=== PATIENT | female | born 1985 | race Two or more races ===

== ENCOUNTER 2023-05-13 13:55 | Outpatient (REF) | payer MEDICAID, SELFPAY ==
--- NOTE | ~2023-05-13 | XR_ITS ---
EXAMINATION: XR CHEST CLINICAL INFORMATION: Suspected hilar adenopathy. COMPARISON: Chest radiograph done on 11/09/2017. TECHNIQUE: 2 views of the chest were obtained. FINDINGS: No significant abnormality is noted involving the heart, lungs, mediastinum, bony thorax or soft tissues. XR/XR chest 2V IMPRESSION: No radiographic evidence of bilateral hilar adenopathy.
== END 2023-05-13 13:56 | disposition home or self-care (01) ==
LOC: HO.LAB 13:55
PROVIDERS: PCP Internal Medicine; Visit Provider Internal Medicine
DX: Z00.00 Encounter for general adult medical examination without abnormal findings (principal); F32.A Depression, unspecified; R59.0 Localized enlarged lymph nodes
CPT/HCPCS: 36415; 71046; 80053; 80061; 84443; 85025

== ENCOUNTER 2023-08-27 19:29 | Emergency (ER) | payer MEDICAID, SELFPAY ==
--- NOTE | ~2023-08-27 | XR_ITS ---
EXAMINATION: XR CHEST CLINICAL INFORMATION: Chest pain. COMPARISON: Chest radiograph 05/13/2023. TECHNIQUE: 2 views of the chest were obtained. FINDINGS: No significant abnormality is noted involving the heart, lungs, mediastinum, bony thorax or soft tissues. XR/XR chest 2V IMPRESSION: Unremarkable examination.
[2023-08-27 19:31] VITALS: BP 131/78; PULSE 109; RESP 16; TEMP 36.9; O2SAT 97; BMI 23.6
--- NOTE | 2023-08-27 19:33 | ED.CHESTPAIN ---
HPI - Chest Pain General Chief Complaint: Chest Pain Stated Complaint: chest pain Time Seen by Provider: 08/27/23 21:27 Source: patient Mode of arrival: ambulatory Limitations: no limitations History of Present Illness HPI narrative: Patient was healthy been feeling weak with occasional cough for last 2 days has body aches shortness of breath patient never been vaccinated against COVID had COVID once no other family members sick Related Data Previous Rx's Medication Instructions Recorded benzonatate 200 mg capsule 200 mg PO TID PRN cough #20 caps 08/27/23 ibuprofen 600 mg tablet 600 mg PO Q6H PRN fever or pain 08/27/23 #30 tabs Allergies Allergy/AdvReac Type Severity Reaction Status Date / Time latex [Latex] Allergy Mild RASH Verified 08/27/23 19:31 peanut [Peanut] Allergy Mild RASH Verified 08/27/23 19:31 Latex Gloves Allergy Unknown rash Uncoded 08/27/23 19:31 Review of Systems Review of Systems: Yes all other systems are reviewed and are negative PMFSH Past Medical History Surgical History History of drainage of abscess Family History Family History Father Hypertension Stroke Mother No problems noted. Maternal Aunt Breast cancer Social History Social History Housing: Apartment Alcohol intake: current Alcohol intake frequency: holidays/special occasions only Alcohol type: beer and wine Patient Tobacco Use Status: Never used Tobacco Smoked in Last 30 Days: No e-Cigarette/Vaping Use: Never Used Second Hand Smoke Exposure: No Use of substances other than those prescribed or required for medical reasons: No Advance Directives: No Patient : No service: No Current occupational status: unemployed Cognitive needs: No Hearing needs: No Vision needs: No Physical Exam Vital Signs: Vital Signs: Last Vital Signs Temp 98.5 F 08/27/23 21:41 Pulse 85 08/27/23 21:41 Resp 14 08/27/23 21:41 BP 121/87 08/27/23 21:41 Pulse Ox 100 08/27/23 21:41 O2 Del Method Room Air 08/27/23 21:41 BMI result Body Mass Index 23.6 Appearance: Alert. Oriented X3. No acute distress. Eyes: PERRLA, No Nystagmus ENT: Pharynx normal. Oral Mucosa moist Neck: Normal inspection. Neck supple. CVS: Normal heart rate and rhythm. Pulses normal. Respiratory: No respiratory distress. Equal air entry bilateral, no wheezing/rales/rhonchi Abdomen: Soft and nontender. Bowel sounds are present, Skin: Skin warm and dry. Normal skin color. Normal skin turgor. Extremities: No lower extremity edema. No calf tenderness Neuro: Oriented X 3. Course Course Course Narrative: RME performed by Deya De La Garza PA-C. Patient is a 37 year old assigned female at presenting to the emergency department with chest pain. Labs, imaging, and swabs ordered. Patient placed back in the waiting room pending room availability and results. Medications Administered Discontinued Medications Generic Name Dose Route Start Last Admin Trade Name Freq PRN Reason Stop Dose Admin Ibuprofen 600 mg 08/27/23 21:37 08/27/23 21:45 Ibuprofen 600 Mg Tablet PO 08/27/23 21:38 600 mg ONCE ONE Administration Medical Decision Making Medical Decision Making [facility] Narrative: Patient COVID positive likely the cause for the body symptoms will discharge patient home on symptomatic treatment Differential Diagnosis Differential Diagnoses: The differential diagnosis associated with the presentation includes Viral infection/COVID/URI Lab Data [facility] Lab Attestation statement: I reviewed the patient's lab results. 08/27/23 19:56 08/27/23 19:56 Labs: Lab Results 08/27/23 Range/Units 19:56 WBC 4.6 L (4.8-10.8) X10*3/uL RBC 4.43 (4.20-5.50) X10*6/uL Hgb 12.9 (12.0-16.0) g/dl Hct 38.5 (37.0-47.0) % MCV 86.9 (80.0-98.0) fL MCH 29.1 (27.0-33.0) pg MCHC 33.5 (31.0-35.0) g/dl RDW 11.9 (11.0-16.0) % Plt Count 223 (160-400) X10*3/uL MPV 9.4 (9.4-12.3) fL Immature Gran % (Auto) 0.4 (0.0-0.4) % Neut % (Auto) 58.5 (45-73) % Lymph % (Auto) 23.0 (20-40) % [place]dwell % (Auto) 16.6 H (2-11) % Eos % (Auto) 1.1 (0-4) % Baso % (Auto) 0.4 (0-2) % Lymph # (Auto) 1.1 L (1.2-4.9) X10*3/uL [place]dwell # (Auto) 0.8 (0.1-1.2) X10*3/uL Eos # (Auto) 0.1 (0.0-0.4) X10*3/uL Baso # (Auto) 0.0 (0.0-0.2) X10*3/uL Abs Immat Gran (auto) 0.02 (0.00-0.03) X10*3/uL Absolute Neuts (auto) 2.7 (2.0-8.3) x10*3/uL Absolute Nucleated RBC 0.000 (0.0-0.012) X10*3/uL Nucleated RBC % (auto) 0.0 (0.0-0.2) /100WBC PT 11.6 (11.1-13.3) SEC INR 1.0 (0.9-1.1) APTT 26.7 (26.0-36.4) SEC Sodium 139 (135-145) mmol/L Potassium 3.6 (3.3-5.1) mmol/L Chloride 104 (96-108) mmol/L Carbon Dioxide 25 (22-29) mmol/L Anion Gap 14 (12-20) BUN 9 (9-16) mg/dL Creatinine 0.69 (0.5-1.4) mg/dL Estim Creat Clear Calc 84.2 Estimated GFR > 60 Random Glucose 96 (60-115) mg/dL Calcium 9.0 (8.4-10.2) mg/dL Magnesium 1.8 (1.6-2.6) mg/dL Total Bilirubin 0.4 (0.0-1.0) mg/dL AST 21 (5-31) U/L ALT 21 (0-31) U/L Alkaline Phosphatase 53 (39-117) U/L Troponin I High Sens < 2.7 (<3.5-17.0) ng/L Total Protein 7.1 (6.5-8.0) g/dL Albumin 4.1 (3.5-5.0) g/dL Influenza Type A (PCR) NEGATIVE (Negative) Influenza Type B (PCR) NEGATIVE (Negative) RSV RNA Qual (PCR) NEGATIVE (Negative) SARS-CoV-2 RNA (RT-PCR) POSITIVE A (Negative) Discharge Plan Discharge Clinical Impression: COVID-19 Patient Disposition: Home, Self-Care Instructions: COVID-19 (Coronavirus Disease 2019) (ED) Additional Instructions: Social distancing has advised Drink plenty of fluid Cough drops and ibuprofen as prescribed Report to ER if increased shortness of breath Prescriptions: New benzonatate 200 mg capsule 200 mg PO TID PRN (Reason: cough) Qty: 20 0RF ibuprofen 600 mg tablet 600 mg PO Q6H PRN (Reason: fever or pain) Qty: 30 0RF Stand Alone Forms: Work/School Release Interventions: ED Discharge Assessment Last Done: 08/27/23 22:03 Discharge Date/Time: 08/27/23 22:05
--- NOTE | 2023-08-27 19:34 | ECG_ITS ---
Test Reason : CHEST PAIN Blood Pressure : / mmHG Vent. Rate : 091 BPM Atrial Rate : 091 BPM P-R Int : 134 ms QRS Dur : 082 ms QT Int : 346 ms P-R-T Axes : 059 074 020 degrees QTc Int : 425 ms Normal sinus rhythm RSR' or QR pattern in V1 suggests right ventricular conduction delay Otherwise normal ECG No previous ECGs available Referred By: Deya De La Garza Electronically Signed By:VERONA ARNOLD MD
[2023-08-27 19:59] LABS: MANUAL DIFF FLAG NO
[2023-08-27 20:07] LABS: Prothrombin Time 11.6 SEC (11.1-13.3)
[2023-08-27 20:09] LABS: Partial Thromboplastin Time 26.7 SEC (26.0-36.4)
[2023-08-27 20:16] LABS: Alanine Aminotransferase 21 U/L (0-31); Albumin Level 4.1 g/dL (3.5-5.0); Alkaline Phosphatase 53 U/L (39-117); Anion Gap 14 (12-20); Aspartate Amino Transferase 21 U/L (5-31); Bilirubin Total 0.4 mg/dL (0.0-1.0); Blood Urea Nitrogen 9 mg/dL (9-16); Carbon Dioxide 25 mmol/L (22-29); Chloride 104 mmol/L (96-108); Creatinine Clr Calc Pharmacy 84.2; Estimated Glomerular Filt Rate > 60; Glucose Random 96 mg/dL (60-115); Magnesium 1.8 mg/dL (1.6-2.6); Potassium 3.6 mmol/L (3.3-5.1); Sodium 139 mmol/L (135-145); Total Protein 7.1 g/dL (6.5-8.0)
[2023-08-27 20:26] LABS: Basophils Percent Auto 0.4 % (0-2); Eosinophils Absolute Auto 0.1 X10*3/uL (0.0-0.4); Eosinophils Percent Auto 1.1 % (0-4); Hematocrit 38.5 % (37.0-47.0); Hemoglobin 12.9 g/dl (12.0-16.0); Imm Gran Abs Auto 0.02 X10*3/uL (0.00-0.03); Imm Gran Pct Auto 0.4 % (0.0-0.4); Lymphocytes Absolute Auto 1.1 X10*3/uL (1.2-4.9); Mean Corpuscular HGB Conc 33.5 g/dl (31.0-35.0); Mean Corpuscular Hemoglobin 29.1 pg (27.0-33.0); Mean Corpuscular Volume 86.9 fL (80.0-98.0); Mean Platelet Volume 9.4 fL (9.4-12.3); Monocytes Absolute Auto 0.8 X10*3/uL (0.1-1.2); Monocytes Percent Auto 16.6 % (2-11); Neutrophils Absolute Auto 2.7 x10*3/uL (2.0-8.3); Neutrophils Percent Auto 58.5 % (45-73); Platelet Count 223 X10*3/uL (160-400); Red Blood Count 4.43 X10*6/uL (4.20-5.50); Red Cell Distribution Width 11.9 % (11.0-16.0); White Blood Count 4.6 X10*3/uL (4.8-10.8)
[2023-08-27 20:27] LABS: Troponin-I High Sensitivity < 2.7 ng/L (<3.5-17.0)
[2023-08-27 20:39] LABS: Influenza A PCR NEGATIVE (Negative); Influenza B PCR NEGATIVE (Negative); Resp Syncy Virus RNA Qual PCR NEGATIVE (Negative); SARS COV2 PCR INHOUSE POSITIVE (Negative)
[2023-08-27 21:40] VITALS: PULSE 93
[2023-08-27 21:41] VITALS: BP 121/87; PULSE 85; RESP 14; TEMP 36.9; O2SAT 100
[2023-08-27] MEDS: Ibuprofen 600 MG TABLET PO (21:45)
== END 2023-08-27 22:05 | disposition home or self-care (01) ==
PROVIDERS: Physician Assistant Medical; Emergency Provider Internal Medicine; PCP Internal Medicine
DX: U07.1 COVID-19 (principal); R07.89 Other chest pain; R05.9 Cough, unspecified; Z79.899 Other long term (current) drug therapy
CPT/HCPCS: 0241U; 71046; 80053; 83735; 84484; 85025; 85610; 85730; 93005; 99283; 99285

== ENCOUNTER 2023-09-19 17:21 | Emergency (ER) | payer MEDICAID, SELFPAY ==
[2023-09-19 18:08] VITALS: BP 137/72; PULSE 105; RESP 20; TEMP 36.7; O2SAT 100; BMI 23.6
--- NOTE | 2023-09-19 18:17 | ED_ITS ---
HPI - General Adult General Chief complaint: Skin/Abscess/Foreign Body Stated complaint: ?abcess Time Seen by Provider: 09/19/23 18:45 Source: patient Mode of arrival: ambulatory Limitations: no limitations History of Present Illness HPI narrative: Patient is a 38 year old assigned female at with a history of eczema and pilondal abscess presenting to the emergency department today with a possible pilonidal abscess. Patient states that over the last few days she has had worsening pain near her tailbone and she believes that it is another pilonidal abscess. Patient denies any dizziness, lightheadedness, abdominal pain, nausea, vomiting, fever, chills, blurry vision, double vision, loss of vision, chest pain, difficulty breathing, shortness of breath, back pain, night sweats, pain with urination, increased urinary frequency, increased urinary urgency, blood in her urine or stool, syncope or a near syncopal episode, recent trauma or falls, bowel incontinence, bladder incontinence, bowel retention, bladder retention, or any other complaints at this time. Onset (ago): day(s) Location: buttocks Radiation: non-radiation Severity: mild Severity scale (1-10): 3 Quality: aching and dull Pain Consistency: constant Relieving factors: none Exacerbating factors: none Associated symptoms: denies other symptoms Treatments prior to arrival: none Related Data Previous Rx's Medication Instructions Recorded benzonatate 200 mg capsule 200 mg PO TID PRN cough #20 caps 08/27/23 ibuprofen 600 mg tablet 600 mg PO Q6H PRN fever or pain 08/27/23 #30 tabs cephalexin 500 mg capsule 500 mg PO Q6H 7 days #28 caps 09/19/23 Allergies Allergy/AdvReac Type Severity Reaction Status Date / Time latex [Latex] Allergy Mild RASH Verified 08/27/23 19:31 peanut [Peanut] Allergy Mild RASH Verified 08/27/23 19:31 Latex Gloves Allergy Unknown rash Uncoded 08/27/23 19:31 Review of Systems Constitutional: Constitutional: Reports no additional constitutional complaints, Denies chills, Denies fever(s) and Denies night sweats Eyes: Eyes: Reports no additional eye complaints, Denies blurry vision, Denies change in vision, Denies diplopia, Denies eye discharge, Denies loss of vision and Denies eye pain ENT: Denies dizziness Cardiovascular: Cardiovascular: Reports no additional cardiovascular complaints, Denies chest pain, Denies lightheadedness, Denies Loss of Consciousness and Denies dyspnea Respiratory: Respiratory: Reports no additional respiratory complaints and Denies dyspnea Gastrointestinal: Gastrointestinal: Reports no additional gastrointestinal complaints, Denies abdominal pain, Denies melena, Denies hematochezia, Denies change in bowel habits and Denies change in stool character Comments: tail bone pain / possible pilonidal abscess Genitourinary: Genitourinary: Denies hematuria, Denies urinary frequency, Denies dysuria, Denies urinary incontinence, Denies urinary hesitancy and Denies urinary urgency Musculoskeletal: Musculoskeletal: Reports no additional musculoskeletal complaints, Denies numbness and Denies tingling Neurologic: Denies dizziness, Denies loss of vision, Denies numbness and Denies tingling Psychiatric: Psychiatric: Reports no additional psychiatric complaints Endocrine: Endocrine: Reports no additional endocrine complaints Hematologic/Lymphatic: Hematologic/Lymphatic: Reports no additional hematologic/lymphatic complaints Allergic/Immunologic: Allergic/Immunologic: Reports no additional allergic/immunologic complaints [facility] Past Medical History Attestation statement: The following information was validated with the patient. Source: old records reviewed and nursing notes reviewed Medical History COVID-19 Lymphadenopathy Right upper quadrant abdominal pain Physical exam Surgical History History of drainage of abscess Family History Family History Father Hypertension Stroke Mother No problems noted. Maternal Aunt Breast cancer Social History Social History Housing: Apartment Alcohol intake: current Alcohol intake frequency: holidays/special occasions only Alcohol type: beer and wine Patient Tobacco Use Status: Never used Tobacco Smoked in Last 30 Days: No e-Cigarette/Vaping Use: Never Used Second Hand Smoke Exposure: No Use of substances other than those prescribed or required for medical reasons: No Advance Directives: No service: No Current occupational status: unemployed Cognitive needs: No Hearing needs: No Vision needs: No Physical Exam ED Vital Signs: Vital Signs - 24 hr 09/19/23 18:08 11/12/23 19:24 Temperature 98.0 F Pulse Rate 105 H 100 Respiratory Rate 20 18 Blood Pressure 137/72 131/76 Pulse Oximetry 100 98 Oxygen Delivery Method Room Air Room Air BMI result Body Mass Index 23.6 Const General: cooperative, no acute distress, alert and awake Nutritional Appearance: well nourished Orientation/consciousness: patient oriented x3 Limitations: no limitations HENMT Head: Yes normal to inspection and Yes atraumatic Ears: hearing grossly normal bilaterally and external ears normal General nose exam: Normal external nose present, no nasal discharge noted and no epistaxis Face and sinus: Yes normal facial exam, No abrasion and No laceration Mouth: Normal oral and palatal mucosa present, no drooling and no muffled voice Eyes General: appearance normal, both eyes and all related structures Periorbital: periorbital findings normal Eyelids: Yes eyelids normal Conjunctivae: conjunctivae normal Pupils: Equal, round and reactive pupils present EOM: EOMs intact bilaterally Neck Neck: Yes normal visual inspection, Yes full ROM and Yes no lymphadenopathy Chest Chest palpation & inspection: normal inspection of the chest Resp Effort & Inspection: normal respiratory effort and able to speak in complete sentences GI Other: induration around the top of the gluteal cleft but no fluctuance, erythema, or warmth Inspection: Yes normal to inspection Neuro General: patient oriented x3 and moves all extremities Cranial nerves: Yes Equal, round and reactive pupils present Cognition (Neuro): normal cognition Motor exam (neuro): 5/5 motor strength present throughout Sensory Exam: Normal double simultaneous stimulation for sensation Coordination: [id number] test normal Extrem General: Yes normal to inspection, Yes full ROM and Yes capillary refill normal Psych Appearance: grossly normal Mental Status: mental status grossly normal Affect: normal affect Attitude: cooperative Thought process: Normal thought process present Thought content: Normal thought content present Insight: Good insight present (Psych) Course Course Course Narrative: RME performed by Deya De La Garza PA-C. Patient is a 38 year old assigned female at presenting to the emergency department with a pilonidal abscess. Patient placed back in the waiting room pending room availability. Medical Decision Making Medical Decision Making MDM Narrative: Patient is a 38 year old assigned female at with a history of pilonidal cyst and eczema presenting to the emergency department today with tailbone pain. Patient's physical exam was as noted in the physical exam portion of this note. I explained my physical exam findings to the patient. I answered all questions asked by the patient. I stressed the importance of the patient taking her medication as prescribed. I stressed the importance of the patient following up with her primary care provider and a general surgeon. I stressed the importance of the patient returning to the emergency department immediately if her symptoms were to worsen or if she were to develop any dizziness, shortness of breath, difficulty breathing, chest pain, blurry vision, loss of vision, nausea, vomiting, abdominal pain, fever, chills, back pain, or any other complaints. Patient verbalized agreement and understanding with this treatment plan and discharge. Differential Diagnosis Differential Diagnoses: The differential diagnosis associated with the presentation includes Pilonidal abscess Pilonidal cyst Tailbone pain External Record Review External record reviewed: Office record (reviewed previous internal medicine visit. ) Prescription Management I considered prescription management with: Antibiotic (patient prescribed an antibiotic. ) Discharge Plan Discharge Clinical Impression: Pilonidal cyst Patient Disposition: Home, Self-Care Instructions: Pilonidal Cyst (ED) Additional Instructions: Follow up with your primary care provider and a general surgeon. Your pilonidal cyst is not erythematous, warm, or swollen, so it is not appropriate for incision and drainage at this time. Apply warm compresses to the area and take your antibiotics as prescribed. Return to the emergency department immediately if your symptoms worsen or if you develop any dizziness, shortness of breath, difficulty breathing, chest pain, blurry vision, loss of vision, nausea, vomiting, abdominal pain, fever, chills, back pain, or any other complaints. Prescriptions: New cephalexin 500 mg capsule 500 mg PO Q6H 7 Days Qty: 28 0RF No Action benzonatate 200 mg capsule 200 mg PO TID PRN (Reason: cough) Qty: 20 0RF ibuprofen 600 mg tablet 600 mg PO Q6H PRN (Reason: fever or pain) Qty: 30 0RF Referrals: [facility] [place] General Surgeons [Provider Group] (Call to establish and follow up with a general surgeon. ) Niki Castro MD [Primary Care Provider] - Stand Alone Forms: Work/School Release Interventions: ED Discharge Assessment Last Done: 09/19/23 19:25 Discharge Date/Time: 09/19/23 19:27 Print Language: [place]
[2023-09-19 19:24] VITALS: BP 131/76; PULSE 100; RESP 18; O2SAT 98
== END 2023-09-19 19:27 | disposition home or self-care (01) ==
PROVIDERS: Emergency Provider Student in an Organized Health Care Education/Training Program; PCP Internal Medicine
DX: L05.91 Pilonidal cyst without abscess (principal); L30.9 Dermatitis, unspecified
CPT/HCPCS: 99283; 99284

== ENCOUNTER 2023-09-23 07:34 | Observation (INO) | payer MEDICAID, SELFPAY ==
--- NOTE | ~2023-09-23 | CT_ITS ---
EXAMINATION: CT PELVIS WITH CONTRAST CLINICAL INFORMATION: Buttock erythema COMPARISON: None TECHNIQUE: Helical scanning was performed with submillimeter collimation through the pelvis with the use of oral contrast and during bolus intravenous injection of 100 mL of Omnipaque 350 intravenous contrast. Sagittal and coronal multiplanar 2-D reconstructions were obtained. This CT examination was performed using dose optimization techniques as appropriate, variously including the following: *Automated exposure control *Adjustment of mA and/or kV according to patient size (this includes techniques or standardized protocols for targeted exams where dose is matched to indication/reason for exam; i.e. extremities or head) *Use of iterative reconstruction technique DLP: 130 mGy-cm FINDINGS: This study is abnormal. There is induration within the soft tissues of the left buttock extending to the gluteal crease which has the appearance of at least cellulitis or a phlegmon. Simple fluid to suggest a drainable collection is not seen. The infiltrative phlegmonous process does extend towards the left levator ani musculature and anorectal region. The uterus appears normal. There does appear to be some soft tissue and gas density in the region of the vagina. Please correlate with CYBER SECURITY ADMINISTRATOR exam. Again, drainable collections are not seen but I cannot exclude an inflammatory or infectious process in the region of the vulva and/or introitus. The muscular structures appear normal as do the osseous structures. There appear to be prominent cyst or follicles in both ovaries with a fat density structure in the left ovary at 19 mm possibly a dermoid. The bladder is decompressed. CT/CT pelvis w IV con IMPRESSION: Indurated process in the left buttock cheek extending into the left gluteal crease and levator ani musculature. An infectious process related due to the introitus or vulva may well be present as well.
[2023-09-23 07:43] VITALS: BP 123/73; PULSE 77; RESP 16; TEMP 36.3; O2SAT 100; BMI 22.9
--- NOTE | 2023-09-23 07:58 | ED.GENADULT ---
HPI - General Adult General Chief complaint: General Medical Stated complaint: Cyst Not Healing Time Seen by Provider: 09/23/23 07:38 Source: patient Mode of arrival: ambulatory Limitations: no limitations History of Present Illness HPI narrative: Patient is a 38-year-old female with history of surgical removal of pilonidal abscess presenting to the emergency department with complaint of increasing pain to left buttock. Patient was seen in this ED on 09/19/23 and started on cephalexin which she reports she has been taking as prescribed. Denies fevers. Does report some nausea but denies vomiting or diarrhea. Denies any drainage from the area. States pain makes it very uncomfortable to sit or wipe after bowel movements. MD complaint: buttock pain Onset (ago): day(s) Location: buttocks and left Radiation: non-radiation Severity: severe Quality: aching Pain Consistency: constant Relieving factors: rest Exacerbating factors: movement and other (sitting, wiping) Associated symptoms: nausea/vomiting (reports nausea, denies vomiting) Treatments prior to arrival: other (antibiotics) Related Data Previous Rx's Medication Instructions Recorded doxycycline hyclate 100 mg capsule 100 mg PO DAILY #20 caps 09/25/23 metronidazole 500 mg tablet 500 mg PO BID #30 tabs 09/25/23 Allergies Allergy/AdvReac Type Severity Reaction Status Date / Time latex [Latex] Allergy Mild RASH Verified 08/27/23 19:31 peanut [Peanut] Allergy Mild RASH Verified 08/27/23 19:31 Latex Gloves Allergy Unknown rash Uncoded 08/27/23 19:31 Review of Systems Review of Systems: As per HPI. Yes all other systems are reviewed and are negative Constitutional: Constitutional: Reports as per HPI [facility] Past Medical History Medical History COVID-19 Lymphadenopathy Right upper quadrant abdominal pain Physical exam Surgical History History of drainage of abscess Family History Family History Father Hypertension Stroke Mother No problems noted. Maternal Aunt Breast cancer Social History Housing: Apartment Unable to assess alcohol history related to: Unknown Alcohol intake: current Alcohol intake frequency: holidays/special occasions only Alcohol type: beer and wine Patient Tobacco Use Status: Never used Tobacco e-Cigarette/Vaping Use: Never Used Second Hand Smoke Exposure: No service: No Current occupational status: unemployed Cognitive needs: No Hearing needs: No Vision needs: No Physical Exam ED Vital Signs: Vital Signs - 24 hr 09/23/23 07:43 09/23/23 11:14 09/23/23 15:26 Temperature 97.4 F 98.6 F Pulse Rate 77 96 100 Respiratory Rate 16 18 Blood Pressure 123/73 122/70 151/66 H Pulse Oximetry 100 99 97 Oxygen Delivery Method Room Air Room Air BMI result Body Mass Index 22.9 Vital signs have been reviewed and appear to be correct. Blood pressure normal. Heart rate normal. Respiratory rate normal. Temperature normal. Oxygen saturation normal. Const General: cooperative, healthy appearing and no acute distress Orientation/consciousness: oriented to person, oriented to place, oriented to time and patient oriented x3 Limitations: no limitations HENMT Head: Yes normocephalic and Yes atraumatic Ears: external ears normal General nose exam: Normal external nose present Face and sinus: Yes face symmetric Mouth: oropharynx normal and moist mucous membranes Throat: Yes uvula midline Eyes Pupils: Equal, round and reactive pupils present Neck Neck: Yes normal visual inspection and Yes supple Resp Effort & Inspection: normal respiratory effort and able to speak in complete sentences Auscultation: clear to auscultation bilaterally Cardio Rate: regular rate Rhythm: regular rhythm Heart sounds: S1 normal heart sound present and S2 normal heart sound present GI Other: Exam chaperoned by LETI Monae. Patient also examined with Dr. Rudd. Palpation (GI): Soft to palpation and nontender Auscultation: normoactive bowel sounds Rectal Exam - Female: External hemorrhoid(s) present and tenderness (left buttock, medial) General: Yes no CVA tenderness Back/Spine/Pelvis Back: no CVA tenderness Skin General skin exam: elasticity normal and turgor normal Full body images: 1. erythema, warmth, induration Neuro General: oriented to person, oriented to place, oriented to time, patient oriented x3, moves all extremities, no focal motor deficits and CN's II-XI intact bilaterally Cranial nerves: Yes Equal, round and reactive pupils present Cognition (Neuro): normal cognition Extrem General: Yes full ROM, Yes no pedal edema and Yes no calf tenderness Psych Mental Status: mental status grossly normal Affect: normal affect Thought process: Normal thought process present Medications Administered Discontinued Medications Generic Name Dose Route Start Last Admin Trade Name Diony PRN Reason Stop Dose Admin Acetaminophen 650 mg 09/23/23 16:02 09/25/23 06:12 Acetaminophen 325 Mg Tablet PO 650 mg Q6H PRN Administration Pain, Mild (Pain Scale 1-3) Doxycycline Monohydrate 100 mg 09/23/23 18:00 09/25/23 06:10 Doxycycline Monohydrate 100 Mg Capsule PO 100 mg Q12H DAMARI Administration Hydromorphone HCl 0.5 mg 09/23/23 16:19 09/23/23 16:27 Hydromorphone Hcl 0.5 Mg/0.5 Ml Syringe IVPUSH 0.5 mg Q4H PRN Administration Pain, Severe (Pain Scale 7-10) Protocol Piperacillin Sod/Tazobactam 50 mls @ 100 mls/hr 09/23/23 13:56 09/23/23 16:14 Sod 3.375 gm/ Sodium Chloride IV 09/23/23 14:25 Infused ONCE ONE Infusion Vancomycin HCl 1,500 mg/ 500 mls @ 333.333 mls/hr 09/23/23 13:56 09/23/23 17:46 Sodium Chloride IV 09/23/23 15:25 Infused ONCE ONE Infusion Clindamycin Phosphate 900 mg in 50 mls @ 50 mls/hr 09/23/23 13:56 09/23/23 20:14 Cleocin IV 09/23/23 14:55 Infused ONCE ONE Infusion Ceftriaxone Sodium 1 gm/ 50 mls @ 100 mls/hr 09/23/23 21:00 09/24/23 21:30 Sodium Chloride IV Infused Q24H DAMARI Infusion Iohexol 85 ml 09/23/23 11:07 09/23/23 11:08 Iohexol 350 Mg/Ml 100 Ml Infus..Btl IV 09/23/23 11:08 85 ml ONCE ONE Administration Metronidazole 500 mg 09/23/23 18:00 09/25/23 06:10 Metronidazole 500 Mg Tablet PO 500 mg Q12H DAMARI Administration Oxycodone HCl 5 mg 09/23/23 11:14 09/23/23 11:18 Oxycodone Hcl Immed Release 5 Mg Tablet PO 09/23/23 11:15 5 mg ONCE ONE Administration Oxycodone HCl 5 mg 09/23/23 16:07 09/24/23 21:27 Oxycodone Hcl Immed Release 5 Mg Tablet PO 5 mg Q6H PRN Administration Pain, Severe (Pain Scale 7-10) Sodium Chloride 3 ml 09/24/23 00:00 09/25/23 09:58 0.9 % Sodium Chloride Flush 3 Ml Syringe IVFLUSH Not Given QSHIFT [facility] Zolpidem Tartrate 5 mg 09/23/23 16:07 09/24/23 00:15 Zolpidem Tartrate 5 Mg Tablet PO 5 mg BEDTIME PRN Administration Insomnia Medical Decision Making Medical Decision Making [facility] Narrative: Patient is a 38-year-old female with history of surgical removal of pilonidal abscess presenting to the emergency department with complaint of increasing pain to left buttock. On exam patient is awake, A+Ox3, VS WNL, afebrile, normal neurological exam without focal deficits, physical exam findings as above. Given reported symptoms and physical exam findings, initial differential includes buttock abscess, perirectal abscess, cellulitis. Less likely Ruth's gangrene. Labs notable for mild leukocytosis, no anemia, no significant electrolyte abnormalities, negative . CT concerning for deep space infection of left buttock. My interpretation is in agreement with the radiologist's interpretation. Nogal text to Dr. Harris regarding CT results. IV Zosyn, Vanco, and Clindamycin ordered as well as blood cultures. Discussed admission with STEVEN Aceves who is requesting to wait until patient is evaluated by doctors are be prior to admission. Patient signed out to JOSE A Arndt pending evaluation by Dr. Cosby. Differential Diagnosis Differential Diagnoses: The differential diagnosis associated with the presentation includes As per MDM. Admission/Observation Consideration of admission/observation: Escalation of care including admission/observation considered Consult Healthcare Provider Management of the patient was discussed with: Paid Internship (Dr. Harris) Lab Data [facility] Lab Attestation statement: I reviewed the patient's lab results. As per MDM. 09/24/23 06:39 09/23/23 08:34 Labs: Lab Results 09/23/23 Range/Units 08:34 WBC 11.1 H (4.8-10.8) X10*3/uL RBC 4.42 (4.20-5.50) X10*6/uL Hgb 12.6 (12.0-16.0) g/dl Hct 37.9 (37.0-47.0) % MCV 85.7 (80.0-98.0) fL MCH 28.5 (27.0-33.0) pg MCHC 33.2 (31.0-35.0) g/dl RDW 11.9 (11.0-16.0) % Plt Count 284 D (160-400) X10*3/uL MPV 9.2 L (9.4-12.3) fL Immature Gran % (Auto) 0.3 (0.0-0.4) % Neut % (Auto) 70.0 (45-73) % Lymph % (Auto) 14.8 L (20-40) % [place] % (Auto) 8.0 (2-11) % Eos % (Auto) 6.7 H (0-4) % Baso % (Auto) 0.2 (0-2) % Lymph # (Auto) 1.6 (1.2-4.9) X10*3/uL [place] # (Auto) 0.9 (0.1-1.2) X10*3/uL Eos # (Auto) 0.7 H (0.0-0.4) X10*3/uL Baso # (Auto) 0.0 (0.0-0.2) X10*3/uL Abs Immat Gran (auto) 0.03 (0.00-0.03) X10*3/uL Absolute Neuts (auto) 7.8 (2.0-8.3) x10*3/uL Absolute Nucleated RBC 0.000 (0.0-0.012) X10*3/uL Nucleated RBC % (auto) 0.0 (0.0-0.2) /100WBC Sodium 140 (135-145) mmol/L Potassium 3.6 (3.3-5.1) mmol/L Chloride 105 (96-108) mmol/L Carbon Dioxide 27 (22-29) mmol/L Anion Gap 12 (12-20) BUN 12 (9-16) mg/dL Creatinine 0.69 (0.5-1.4) mg/dL Estim Creat Clear Calc 83.4 Estimated GFR > 60 Random Glucose 102 (60-115) mg/dL Calcium 9.4 (8.4-10.2) mg/dL Beta HCG, Quant < 2 mIU/mL Independent Interpretation I performed an independent interpretation of an: CT Scan Interpretation: CT concerning for deep space infection of left buttock Radiology Impression Discussion of test interpretation with radiology: I have reviewed the radiologist's reading. Radiologist Impression: CT/CT pelvis w IV con IMPRESSION: Indurated process in the left buttock cheek extending into the left gluteal crease and levator ani musculature. An infectious process related due to the introitus or vulva may well be present as well. External Record Review External record reviewed: Inpatient record, Office record and Outpatient record Prescription Management I considered prescription management with: Antibiotic Discharge Plan Discharge Clinical Impression: Perirectal abscess Patient Disposition: Admitted as Observation Interventions: Admission Worksheet (ED) Last Done: 09/23/23 23:31
--- NOTE | 2023-09-23 08:37 | PC.NURSE ---
IV placed, labs drawn and sent.
[2023-09-23 08:39] LABS: Basophils Percent Auto 0.2 % (0-2); Eosinophils Absolute Auto 0.7 X10*3/uL (0.0-0.4); Eosinophils Percent Auto 6.7 % (0-4); Hematocrit 37.9 % (37.0-47.0); Hemoglobin 12.6 g/dl (12.0-16.0); Imm Gran Abs Auto 0.03 X10*3/uL (0.00-0.03); Imm Gran Pct Auto 0.3 % (0.0-0.4); Lymphocytes Absolute Auto 1.6 X10*3/uL (1.2-4.9); Lymphocytes Percent Auto 14.8 % (20-40); MANUAL DIFF FLAG NO; Mean Corpuscular HGB Conc 33.2 g/dl (31.0-35.0); Mean Corpuscular Hemoglobin 28.5 pg (27.0-33.0); Mean Corpuscular Volume 85.7 fL (80.0-98.0); Mean Platelet Volume 9.2 fL (9.4-12.3); Monocytes Absolute Auto 0.9 X10*3/uL (0.1-1.2); Neutrophils Absolute Auto 7.8 x10*3/uL (2.0-8.3); Platelet Count 284 X10*3/uL (160-400); Red Blood Count 4.42 X10*6/uL (4.20-5.50); Red Cell Distribution Width 11.9 % (11.0-16.0); White Blood Count 11.1 X10*3/uL (4.8-10.8)
[2023-09-23 08:53] LABS: Anion Gap 12 (12-20); Blood Urea Nitrogen 12 mg/dL (9-16); Calcium 9.4 mg/dL (8.4-10.2); Carbon Dioxide 27 mmol/L (22-29); Chloride 105 mmol/L (96-108); Creatinine Clr Calc Pharmacy 83.4; Estimated Glomerular Filt Rate > 60; Glucose Random 102 mg/dL (60-115); Potassium 3.6 mmol/L (3.3-5.1); Sodium 140 mmol/L (135-145)
[2023-09-23 10:16] LABS: HCG Quantitative < 2 mIU/mL
[2023-09-23] MEDS: iohexoL 350 MG/ML 100 ML INFUS..BTL 85 ML IV (11:08)
[2023-09-23 11:14] VITALS: BP 122/70; PULSE 96; RESP 18; O2SAT 99
[2023-09-23] MEDS: oxyCODONE HCl Immed Release 5 MG TABLET PO (11:18)
--- NOTE | 2023-09-23 11:19 | PC.NURSE ---
pt back from CT scan. reporting 9/10 pain. medicated per JAN.
[2023-09-23 15:26] VITALS: BP 151/66; PULSE 100; TEMP 37; O2SAT 97
[2023-09-23] MEDS: Piperacillin Sodium/Tazobactam 3.375 GM in 0.9 % Sodium Chloride 50 ML IV (15:33)
--- NOTE | 2023-09-23 15:35 | PC.NURSE ---
firm mass felt under skin of left buttock. area is painful to touch. zocyn infusing per MAR after 2x BC draw pt reports last time she ate or drank was about an hour ago - pt sipped some soda
--- NOTE | 2023-09-23 16:10 | P.HPGS_ITS ---
History of Present Illness History of Present Illness Date of Service: 09/23/23 Chief complaint: Cyst Not Healing Narrative: Elizabet Guillermo is a 38 year old female presenting with complaints of pain in the back extending into her perianal region. Pain began approximately 5-6 days prior to presentation. She was previously evaluated and started on antibiotics by mouth. She reports that the pain started in the coccyx area but then gradually radiated down to the perianal skin where it is today. Pain has increased in severity but she denies any bleeding or discharge from the skin. She also denies abdominal pain nausea, vomiting, diarrhea or constipation. She is urinating without difficulty. Patient underwent evaluation today in the emergency department was noted to have a WBC of 11.1. A CT pelvis revealed Indurated process in the left buttock cheek extending into the left gluteal crease and levator ani musculature. An infectious process related due to the introitus or vulva may well be present as well. She is admitted to the surgical service for further management and IV antibiotics. Review of Systems 2 Review of Systems: Yes all other systems are reviewed and are negative Constitutional: Constitutional: Denies chills, Denies fever(s), Denies headache(s), Denies poor appetite and Denies weakness ENT: Denies headache(s) Cardiovascular: Cardiovascular: Denies chest pain, Denies irregular heart rhythm, Denies palpitations and Denies dyspnea Respiratory: Respiratory: Denies cough, Denies excessive phlegm production and Denies dyspnea Gastrointestinal: Gastrointestinal: Denies abdominal pain, Denies bloating, Denies change in bowel habits, Denies constipation, Denies heartburn, Denies diarrhea, Denies nausea and Denies vomiting Genitourinary: Genitourinary: Denies urinary frequency Musculoskeletal: Musculoskeletal: Denies back pain, Denies muscle weakness and Denies numbness Integumentary/Breasts: Skin/Breast: Denies changing lesions and Denies unusual bruising Neurologic: Denies headache(s), Denies numbness, Denies paresthesias and Denies weakness Psychiatric: Psychiatric: Denies anxiety and Denies depression Endocrine: Endocrine: Denies palpitations Hematologic/Lymphatic: Hematologic/Lymphatic: Denies lymphadenopathy PMFSH Past Medical History Medical History COVID-19 Lymphadenopathy Right upper quadrant abdominal pain Physical exam Family History Family History Father Hypertension Stroke Mother No problems noted. Maternal Aunt Breast cancer Surgical History Surgical History History of drainage of abscess Social History Social History Housing: Apartment Unable to assess alcohol history related to: Unknown Alcohol intake: current Alcohol intake frequency: holidays/special occasions only Alcohol type: beer and wine Patient Tobacco Use Status: Never used Tobacco Smoked in Last 30 Days: No e-Cigarette/Vaping Use: Never Used Second Hand Smoke Exposure: No Use of substances other than those prescribed or required for medical reasons: Unknown Advance Directives: No Patient : No service: No Current occupational status: unemployed Cognitive needs: No Hearing needs: No Vision needs: No Meds Allergies Allergy/AdvReac Type Severity Reaction Status Date / Time latex [Latex] Allergy Mild RASH Verified 08/27/23 19:31 peanut [Peanut] Allergy Mild RASH Verified 08/27/23 19:31 Latex Gloves Allergy Unknown rash Uncoded 08/27/23 19:31 Active Medications: Current Medications Acetaminophen (Acetaminophen 325 Mg Tablet) 650 mg PO Q6H PRN PRN Reason: Pain, Mild (Pain Scale 1-3) Hydromorphone HCl (Hydromorphone Hcl 1 Mg/Ml Syringe) 0.5 mg IVPUSH Q4H PRN; Protocol PRN Reason: Pain, Severe (Pain Scale 7-10) Piperacillin Sod/Tazobactam (Sod 3.375 gm/ Sodium Chloride) 50 mls @ 100 mls/hr IV Q6H DAMARI Ondansetron HCl (Ondansetron Hcl 4 Mg/2 Ml Vial) 4 mg IVPUSH QID PRN PRN Reason: Nausea Oxycodone HCl (Oxycodone Hcl Immed Release 5 Mg Tablet) 5 mg PO Q6H PRN PRN Reason: Pain, Severe (Pain Scale 7-10) Sodium Chloride (0.9 % Sodium Chloride Flush 3 Ml Syringe) 3 ml IVFLUSH QSHIFT DAMARI Zolpidem Tartrate (Zolpidem Tartrate 5 Mg Tablet) 5 mg PO BEDTIME PRN PRN Reason: Insomnia Home Medications Medication Instructions Recorded Confirmed Last Taken Type cetirizine 10 mg tablet 10 mg PO DAILY 09/23/23 Unknown History fluticasone propionate 50 1 spray intranasal DAILY 09/23/23 Unknown History mcg/actuation nasal spray,suspension Physical Exam 2 Vital Signs: Vital Signs: Last Vital Signs Temp 98.6 F 09/23/23 15:26 Pulse 100 09/23/23 15:26 Resp 18 09/23/23 11:14 BP 151/66 H 09/23/23 15:26 Pulse Ox 97 09/23/23 15:26 O2 Del Method Room Air 09/23/23 11:14 BMI result Body Mass Index 22.9 Const: General: cooperative and no acute distress Nutritional Appearance: w ell nourished Orientation/consciousness: patient oriented x3 Limitations: no limitations HEENT: Head: Yes normocephalic and Yes atraumatic Ears: hearing grossly normal bilaterally Resp: Effort & Inspection: normal respiratory effort, no audible wheezes, no cough and no respiratory distress Cardio: Jugular venous distension: no JVD GI: Inspection: Yes normal to inspection Back/Spine/Pelvis: Other: Examination of the perianal skin reveals no area of erythema or fluctuance however there is an area of tenderness in the left perianal wall. No extension is noted into the anal sphincter. A well-healed pilonidal cyst incision is noted with no evidence of infection. Back/spine/pelvis image: 1. Area of tenderness left perianal wall. No erythema or fluctuance appreciated. Skin: Other: Warm, dry, no rash Neuro: General: patient oriented x3 Extrem: General: Yes no clubbing, cyanosis or edema Results Results Labs: Short CBC 09/23/23 Range/Units 08:34 WBC 11.1 H (4.8-10.8) X10*3/uL Hgb 12.6 (12.0-16.0) g/dl Hct 37.9 (37.0-47.0) % Plt Count 284 D (160-400) X10*3/uL BMP 09/23/23 08:34 Sodium 140 Potassium 3.6 Chloride 105 Carbon Dioxide 27 BUN 12 Creatinine 0.69 Calcium 9.4 Assessment and Plan (1) Perirectal abscess: Status: Acute Plan 38-year-old female patient presenting with a progressing perirectal abscess which has not improved with oral antibiotics. On examination there has been no redness in the perianal skin to indicate an underlying abscess although the site is tender to palpation. 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 I will admit the surgical service for IV antibiotics. Quality Stroke Does the patient have a stroke diagnosis?: No VTE Prior VTE?: No VTE Risk Level:: Surgical - low VTE Device Contraindication: N/A - Device Ordered VTE Drug Contraindication: Treatment Not Indicated Procedures Date of Service Date of Service: 09/23/23
[2023-09-23] MEDS: vancomycin HCL 1,500 MG in 0.9 % Sodium Chloride 500 ML 333.33 MG IV (16:15)
--- NOTE | 2023-09-23 16:20 | PM.GYNCN ---
GENETIC SCIENTIST - CN: HPI Data of Consult Consult date: 09/23/23 Primary Care Provider: Niki Castro MD Consult Narrative Narrative: I was consulted on Elizabet Guillermo who is a 38 year old female presented to emergency room complaining of pain in the back extending into her perianal region. Pain began 5-6 days ago in the coccygeal area but then gradually started getting worse and radiated down to the perianal skin. No other associated abdominal pain, no nausea, or vomiting, no diarrhea or constipation. No Urinary symptoms. The workup done emergency room include the following white count 11.1, H&H 12.6/37.9, hCG less than 2 CT scan of the pelvis showed the following: This study is abnormal. There is induration within the soft tissues of the left buttock extending to the gluteal crease which has the appearance of at least cellulitis or a phlegmon. Simple fluid to suggest a drainable collection is not seen. The infiltrative phlegmonous process does extend towards the left levator ani musculature and anorectal region. The uterus appears normal. There does appear to be some soft tissue and gas density in the region of the vagina. Please correlate with GENETIC SCIENTIST exam. Again, drainable collections are not seen but I cannot exclude an inflammatory or infectious process in the region of the vulva and/or introitus. The muscular structures appear normal as do the osseous structures. There appear to be prominent cyst or follicles in both ovaries with a fat density structure in the left ovary at 19 mm possibly a dermoid. The bladder is decompressed. cc:: CC: OB PMF Past Medical History Medical History COVID-19 Lymphadenopathy Right upper quadrant abdominal pain Physical exam Family History Family History Father Hypertension Stroke Mother No problems noted. Maternal Aunt Breast cancer Surgical History Surgical History History of drainage of abscess Social History Social History Housing: Apartment Unable to assess alcohol history related to: Unknown Alcohol intake: current Alcohol intake frequency: holidays/special occasions only Alcohol type: beer and wine Patient Tobacco Use Status: Never used Tobacco e-Cigarette/Vaping Use: Never Used Second Hand Smoke Exposure: No service: No Current occupational status: unemployed Cognitive needs: No Hearing needs: No Vision needs: No Meds Allergies Allergy/AdvReac Type Severity Reaction Status Date / Time latex [Latex] Allergy Mild RASH Verified 08/27/23 19:31 peanut [Peanut] Allergy Mild RASH Verified 08/27/23 19:31 Latex Gloves Allergy Unknown rash Uncoded 08/27/23 19:31 Active Medications: Current Medications Acetaminophen (Acetaminophen 325 Mg Tablet) 650 mg PO Q6H PRN PRN Reason: Pain, Mild (Pain Scale 1-3) Hydromorphone HCl (Hydromorphone Hcl 0.5 Mg/0.5 Ml Syringe) 0.5 mg IVPUSH Q4H PRN; Protocol PRN Reason: Pain, Severe (Pain Scale 7-10) Piperacillin Sod/Tazobactam (Sod 3.375 gm/ Sodium Chloride) 50 mls @ 100 mls/hr IV Q6H DAMARI Ondansetron HCl (Ondansetron Hcl 4 Mg/2 Ml Vial) 4 mg IVPUSH QID PRN PRN Reason: Nausea Oxycodone HCl (Oxycodone Hcl Immed Release 5 Mg Tablet) 5 mg PO Q6H PRN PRN Reason: Pain, Severe (Pain Scale 7-10) Sodium Chloride (0.9 % Sodium Chloride Flush 3 Ml Syringe) 3 ml IVFLUSH QSHIFT DAMARI Zolpidem Tartrate (Zolpidem Tartrate 5 Mg Tablet) 5 mg PO BEDTIME PRN PRN Reason: Insomnia GENETIC SCIENTIST Physical Exam Vitals Vital signs: Temp Pulse Resp BP Pulse Ox O2 Del Method 98.6 F 100 18 151/66 H 97 Room Air 09/23/23 15:26 09/23/23 15:26 09/23/23 11:14 09/23/23 15:26 09/23/23 15:26 09/23/23 11:14 BMI result Body Mass Index 22.9 Abdomen Auscultation/Inspection/Palpation: Normal bowel sounds and No tenderness Female Genitalia (Pelvic) Bladder/Urethra: Normal meatus Vulva: No lesions Vagina: Nontender Cervix: Grossly normal Uterus: Normal size Adnexa/Parametria: Adnexal Tenderness: None and Adnexal Mass: None Additional Comments: white vaginal discharge and left perianal wall tenderness GENETIC SCIENTIST - Results Labs 09/23/23 08:34 09/23/23 08:34 Labs: Short CBC 09/23/23 Range/Units 08:34 WBC 11.1 H (4.8-10.8) X10*3/uL Hgb 12.6 (12.0-16.0) g/dl Hct 37.9 (37.0-47.0) % Plt Count 284 D (160-400) X10*3/uL BMP 09/23/23 08:34 Sodium 140 Potassium 3.6 Chloride 105 Carbon Dioxide 27 BUN 12 Creatinine 0.[address] scan - pelvis: Radiologist's impression: ITS Impressions Pelvis CT 09/23/23 11:00 IMPRESSION: Indurated process in the left buttock cheek extending into the left gluteal crease and levator ani musculature. An infectious process related due to the introitus or vulva may well be present as well. Assessment and Plan (1) Perirectal abscess: Status: Acute GC and chlamydia, BV panel and Trichomonas collected. Recommend treatment with ceftriaxone 1 g Q 24 IV, Flagyl 500 mg b.i.d. and doxycycline 100 mg b.i.d. to cover for the possibility of PID as a cause of infection although unlikely since the patient does not have risk factors, no pelvic pain, abdominal/ pelvic tenderness, on pelvic exam there is no cervical motion tenderness , adnexal and/or uterine tenderness. If improved within 48 hours, recommend to continue on Flagyl 500 mg p.o. b.i.d. was doxycycline 100 mg p.o. b.i.d. for 14 days and follow-up in the office afterwards
--- NOTE | 2023-09-23 16:22 | PC.NURSE ---
second abx - vanco - infusing per JAN. [facility] pharmacy for clindamycin. Pelvic bed set up for OBGYN. tray at bedside with supplies. pt reporting 9/10 pain. will medicate with PRN orders for pain
--- NOTE | 2023-09-23 16:26 | PHA.MEDREC ---
Pharmacy Consult ? Medication Reconciliation Pharmacy has completed the medication reconciliation. Patient reported no medications at home prescription or otc. Patient did confirm was taking abx recently prescribed. Karly Cowart, PharmD
[2023-09-23] MEDS: HYDROmorphone HCl 0.5 MG/0.5 ML SYRINGE IVPUSH (16:27)
--- NOTE | 2023-09-23 16:32 | PC.NURSE ---
medicated for 9/10 pain with prn dilaudid
[2023-09-23] MEDS: Clindamycin Phosphate/D5W 900 MG/50 ML PIGGYBACK 50 MG IV (18:07)
[2023-09-23] MEDS: Doxycycline Monohydrate 100 MG CAPSULE PO (18:57)
[2023-09-23] MEDS: metroNIDAZOLE 500 MG TABLET PO (18:57)
[2023-09-23 21:47] VITALS: BP 94/52; PULSE 82; RESP 16; TEMP 37.1; O2SAT 99
[2023-09-23] MEDS: cefTRIAXone sodium 1 GM in 0.9 % Sodium Chloride 50 ML IV (22:42)
[2023-09-23 23:36] VITALS: BP 102/64; PULSE 91; RESP 17; TEMP 37.2; O2SAT 99
[2023-09-24] VITALS (7 sets, daily range): BP systolic 101–121; BP diastolic 61–71; PULSE 68–91; RESP 15–20; TEMP 36–36.8; O2SAT 96–100; BMI 23.6
[2023-09-24] MEDS: oxyCODONE HCl Immed Release 5 MG TABLET PO ×2 (00:13→21:27)
[2023-09-24] MEDS: Acetaminophen 325 MG TABLET 650 MG PO (00:13)
[2023-09-24] MEDS: 0.9 % Sodium Chloride Flush 3 ML SYRINGE IVFLUSH ×4 (00:15→21:28)
[2023-09-24] MEDS: Zolpidem Tartrate 5 MG TABLET PO (00:15)
[2023-09-24 02:25] LABS: CT PCR NOT DETECTED (Not Detect.); NG PCR NOT DETECTED (Not Detect.)
[2023-09-24 07:10] LABS: MANUAL DIFF FLAG NO
[2023-09-24 07:18] LABS: Basophils Percent Auto 0.4 % (0-2); Eosinophils Absolute Auto 1.2 X10*3/uL (0.0-0.4); Eosinophils Percent Auto 11.5 % (0-4); Hematocrit 33.7 % (37.0-47.0); Hemoglobin 11.1 g/dl (12.0-16.0); Imm Gran Abs Auto 0.04 X10*3/uL (0.00-0.03); Imm Gran Pct Auto 0.4 % (0.0-0.4); Lymphocytes Absolute Auto 1.9 X10*3/uL (1.2-4.9); Lymphocytes Percent Auto 19.1 % (20-40); Mean Corpuscular HGB Conc 32.9 g/dl (31.0-35.0); Mean Corpuscular Hemoglobin 28.8 pg (27.0-33.0); Mean Corpuscular Volume 87.5 fL (80.0-98.0); Mean Platelet Volume 9.4 fL (9.4-12.3); Monocytes Absolute Auto 0.8 X10*3/uL (0.1-1.2); Monocytes Percent Auto 7.9 % (2-11); Neutrophils Absolute Auto 6.2 x10*3/uL (2.0-8.3); Neutrophils Percent Auto 60.7 % (45-73); Platelet Count 269 X10*3/uL (160-400); Red Blood Count 3.85 X10*6/uL (4.20-5.50); Red Cell Distribution Width 11.9 % (11.0-16.0); White Blood Count 10.1 X10*3/uL (4.8-10.8)
[2023-09-24 07:47] LABS: Glucose, Whole Blood 87 mg/dL (60-115)
--- NOTE | 2023-09-24 08:40 | MHC.CM.PN ---
CM met with Patient at bedside and addressed CHARLES with her, providing Patient with the original and placing a copy on the chart. Patient lives in a house with her 2 children, ages 9 & 14 years of age and she is functionally independent and working. Home is the goal and CM has initiated and will follow for dc planning. PCP is Dr. Niki Castro.
--- NOTE | 2023-09-24 08:48 | PM.PNGS ---
Subjective Subjective Date of Service: 09/24/23 Interval history: Patient improved but still having pain in the perianal region. Physical Exam Vital Signs: Vital Signs: Last Vital Signs Temp 98.2 F 09/24/23 07:27 Pulse 86 09/24/23 07:27 Resp 20 09/24/23 07:27 BP 121/61 09/24/23 07:27 Pulse Ox 100 09/24/23 07:27 O2 Del Method Room Air 09/24/23 07:27 BMI result Body Mass Index 23.6 Const: General: no acute distress Resp: Effort & Inspection: normal respiratory effort, no audible wheezes, no cough and no respiratory distress Back/Spine/Pelvis: Other: Continue tenderness and perianal skin. Skin: General skin exam: no rashes or lesions noted Extrem: Other: No edema Objective Data Active Medications Acetaminophen (Acetaminophen 325 Mg Tablet) 650 mg PO Q6H PRN PRN Reason: Pain, Mild (Pain Scale 1-3) Last Admin: 09/24/23 00:13 Dose: 650 mg Documented By: CESAR Doxycycline Monohydrate (Doxycycline Monohydrate 100 Mg Capsule) 100 mg PO Q12H [facility] Last Admin: 09/24/23 05:12 Dose: Not Given Documented By: CESAR Non-Admin Reason: Physician Held Med Hydromorphone HCl (Hydromorphone Hcl 0.5 Mg/0.5 Ml Syringe) 0.5 mg IVPUSH Q4H PRN; Protocol PRN Reason: Pain, Severe (Pain Scale 7-10) Last Admin: 09/23/23 16:27 Dose: 0.5 mg Documented By: NASH Ceftriaxone Sodium 1 gm/ (Sodium Chloride) 50 mls @ 100 mls/hr IV Q24H [facility] Last Infusion: 09/24/23 00:03 Dose: Infused Documented By: CESAR Metronidazole (Metronidazole 500 Mg Tablet) 500 mg PO Q12H [facility] Last Admin: 09/24/23 05:12 Dose: Not Given Documented By: CESAR Non-Admin Reason: Physician Held Med Ondansetron HCl (Ondansetron Hcl 4 Mg/2 Ml Vial) 4 mg IVPUSH QID PRN PRN Reason: Nausea Oxycodone HCl (Oxycodone Hcl Immed Release 5 Mg Tablet) 5 mg PO Q6H PRN PRN Reason: Pain, Severe (Pain Scale 7-10) Last Admin: 09/24/23 00:13 Dose: 5 mg Documented By: CESAR Sodium Chloride (0.9 % Sodium Chloride Flush 3 Ml Syringe) 3 ml IVFLUSH QSHIFT DAMARI Last Admin: 09/24/23 00:15 Dose: 3 ml Documented By: CESAR Zolpidem Tartrate (Zolpidem Tartrate 5 Mg Tablet) 5 mg PO BEDTIME PRN PRN Reason: Insomnia Last Admin: 09/24/23 00:15 Dose: 5 mg Documented By: CESAR Labs 09/24/23 06:39 09/23/23 08:34 Labs: Laboratory Results - last 24 hr 09/23/23 09/23/23 09/24/23 08:34 17:19 06:39 MCV 87.5 MCH 28.8 MCHC 32.9 RDW 11.9 Plt Count 269 MPV 9.4 Immature Gran % (Auto) 0.4 Neut % (Auto) 60.7 Lymph % (Auto) 19.1 L [place] % (Auto) 7.9 Eos % (Auto) 11.5 H Baso % (Auto) 0.4 Lymph # (Auto) 1.9 [place] # (Auto) 0.8 Eos # (Auto) 1.2 H Baso # (Auto) 0.0 Abs Immat Gran (auto) 0.04 H Absolute Neuts (auto) 6.2 Absolute Nucleated RBC 0.000 Nucleated RBC % (auto) 0.0 Anion Gap 12 Estim Creat Clear Calc 83.4 Estimated GFR > 60 POC Glucose Random Glucose 102 Calcium 9.4 Beta HCG, Quant < 2 Chlam trachomat DNA PCR NOT DETECTED N.gonorrhoeae DNA (PCR) NOT DETECTED 09/24/23 07:26 MCV MCH MCHC RDW Plt Count MPV Immature Gran % (Auto) Neut % (Auto) Lymph % (Auto) [place] % (Auto) Eos % (Auto) Baso % (Auto) Lymph # (Auto) [place] # (Auto) Eos # (Auto) Baso # (Auto) Abs Immat Gran (auto) Absolute Neuts (auto) Absolute Nucleated RBC Nucleated RBC % (auto) Anion Gap Estim Creat Clear Calc Estimated GFR POC Glucose 87 Random Glucose Calcium Beta HCG, Quant Chlam trachomat DNA PCR N.gonorrhoeae DNA (PCR) Microbiology Microbiology Results: Microbiology 09/23/23 17:19 Trichomonas Preparation - Final Vaginal Procedures Date of Service Date of Service: 09/24/23 Progress Note: A&P Assessment and plan (1) Perirectal abscess: Status: Acute Plan Patient marginally improved this morning. Awaiting culture results. WBC normal. Continue IV and p.o. antibiotics. Monitor clinical findings. Time Spent With Patient Time: Total time managing care of this patient today ____ minutes. Quality Stroke Does the patient have a stroke diagnosis?: No VTE Prior VTE?: No VTE Risk Level:: Surgical - low VTE Device Contraindication: N/A - Device Ordered VTE Drug Contraindication: Treatment Not Indicated
--- NOTE | 2023-09-24 08:55 | P.PNOB_ITS ---
EMBOSSER APPRENTICE - Subjective Subjective Date of Service: 09/25/23 Interval history: Improving but still complaining of perirectal pain. On ceftriaxone Flagyl and doxycycline Trichomonas and Gradenella were positive Gonorrhea/chlamydia [place] negative Subjective Findings: Ambulating well: Reports LEAN SPECIALIST Physical Exam Vitals Vital signs: Temp Pulse Resp BP Pulse Ox O2 Del Method 98.2 F 86 20 121/61 100 Room Air 09/24/23 07:27 09/24/23 07:27 09/24/23 07:27 09/24/23 07:27 09/24/23 07:27 09/24/23 07:27 BMI result Body Mass Index 23.6 Abdomen Auscultation/Inspection/Palpation: Normal bowel sounds, Soft and No tenderness EMBOSSER APPRENTICE - Prog Note: Results Labs 09/24/23 06:39 09/23/23 08:34 Labs: Laboratory Results - last 24 hr 09/23/23 09/23/23 09/24/23 08:34 17:19 06:39 WBC 10.1 RBC 3.85 L Hgb 11.1 L Hct 33.7 L MCV 87.5 MCH 28.8 MCHC 32.9 RDW 11.9 Plt Count 269 MPV 9.4 Immature Gran % (Auto) 0.4 Neut % (Auto) 60.7 Lymph % (Auto) 19.1 L [place] % (Auto) 7.9 Eos % (Auto) 11.5 H Baso % (Auto) 0.4 Lymph # (Auto) 1.9 [place] # (Auto) 0.8 Eos # (Auto) 1.2 H Baso # (Auto) 0.0 Abs Immat Gran (auto) 0.04 H Absolute Neuts (auto) 6.2 Absolute Nucleated RBC 0.000 Nucleated RBC % (auto) 0.0 POC Glucose Beta HCG, Quant < 2 Chlam trachomat DNA PCR NOT DETECTED N.gonorrhoeae DNA (PCR) NOT DETECTED 09/24/23 07:26 WBC RBC Hgb Hct MCV MCH MCHC RDW Plt Count MPV Immature Gran % (Auto) Neut % (Auto) Lymph % (Auto) [place] % (Auto) Eos % (Auto) Baso % (Auto) Lymph # (Auto) [place] # (Auto) Eos # (Auto) Baso # (Auto) Abs Immat Gran (auto) Absolute Neuts (auto) Absolute Nucleated RBC Nucleated RBC % (auto) POC Glucose 87 Beta HCG, Quant Chlam trachomat DNA PCR N.gonorrhoeae DNA (PCR) EMBOSSER APPRENTICE - A/P (1) Perirectal abscess: Status: Acute (2) Trichomonas vaginitis: Status: Acute Assessment and Plan: With gardenella positive The patient is on IV Flagyl, and will continue Flagylp.o. 500 mg p.o. b.i.d. for 14 more days after IV antibiotics discontinuation. Wiill order STD screening including HIV, RPR, hepatitis-B surface antigen hepatitis-C antibody Informed the patient about the above result, Instructed the patient to inform partner to check with his PCP to be screened and treated, Instructed the patient to refrain from intercourse for 1 week after both partners are treated. Recommended test of cure in outpatient office in 1-2 weeks. Time Spent With Patient Time: Total time managing care of this patient today ____ minutes. Quality Measures - LEAN SPECIALIST H&P VTE Prior VTE?: No VTE Risk Level:: Surgical - low VTE Device Contraindication: N/A - Device Ordered VTE Drug Contraindication: Treatment Not Indicated
[2023-09-24 08:58] LABS: BV Int Neg Control Negative (Negative); BV Int Pos Control Positive (Positive)
[2023-09-24 13:08] LABS: Syphilis Screen Nonreactive (Nonreactive)
[2023-09-24] MEDS: metroNIDAZOLE 500 MG TABLET PO (17:20)
[2023-09-24] MEDS: Doxycycline Monohydrate 100 MG CAPSULE PO (17:20)
[2023-09-24] MEDS: cefTRIAXone sodium 1 GM in 0.9 % Sodium Chloride 50 ML IV (21:00)
[2023-09-25 03:31] LABS: HBsAGNum1 0.77 S/CO (0.00-0.99); HIV Num 1 3.59 S/CO (0.00-0.99); Hepatitis B Surface Antigen Negative (Negative); ~Hepatitis C Antibody Nonreactive (Nonreactive)
[2023-09-25 04:00] VITALS: BP 112/72; PULSE 80; RESP 18; TEMP 36.2; O2SAT 98
[2023-09-25 04:34] LABS: HIV Num 2 0.05 S/CO
[2023-09-25 04:35] LABS: HIV AB/AG Nonreactive (Nonreactive); HIV Num 3 0.05 S/CO
[2023-09-25] MEDS: Doxycycline Monohydrate 100 MG CAPSULE PO (06:10)
[2023-09-25] MEDS: metroNIDAZOLE 500 MG TABLET PO (06:10)
[2023-09-25] MEDS: Acetaminophen 325 MG TABLET 650 MG PO (06:12)
[2023-09-25 07:34] VITALS: BP 101/63; PULSE 74; RESP 20; TEMP 36.6; O2SAT 99
[2023-09-25 11:40] VITALS: BP 114/64; PULSE 80; RESP 20; TEMP 36.9; O2SAT 96
--- NOTE | 2023-09-25 12:23 | P.PNGS_ITS ---
Subjective Subjective Date of Service: 09/25/23 Interval history: Patient's anorectal symptoms marked really improved. Still having 1 area of persistent discomfort. The meantime, she is tolerating a diet. Physical Exam 2 Vital Signs: Vital Signs: Last Vital Signs Temp 98.5 F 09/25/23 11:40 Pulse 80 09/25/23 11:40 Resp 20 09/25/23 11:40 BP 114/64 09/25/23 11:40 Pulse Ox 96 09/25/23 11:40 O2 Del Method Room Air 09/25/23 11:40 BMI result Body Mass Index 23.6 GI: Other: Abdomen soft, benign Rectal exam demonstrates area of tenderness in left lateral quadrant. Under sterile technique with Betadine prep , area of tenderness was aspirated with 18 gauge needle and was a dry tap. Well tolerated. Dressing applied. Objective Data Active Medications Acetaminophen (Acetaminophen 325 Mg Tablet) 650 mg PO Q6H PRN PRN Reason: Pain, Mild (Pain Scale 1-3) Last Admin: 09/25/23 06:12 Dose: 650 mg Documented By: SURENDRA Doxycycline Monohydrate (Doxycycline Monohydrate 100 Mg Capsule) 100 mg PO Q12H [facility] Last Admin: 09/25/23 06:10 Dose: 100 mg Documented By: SURENDRA Hydromorphone HCl (Hydromorphone Hcl 0.5 Mg/0.5 Ml Syringe) 0.5 mg IVPUSH Q4H PRN; Protocol PRN Reason: Pain, Severe (Pain Scale 7-10) Last Admin: 09/23/23 16:27 Dose: 0.5 mg Documented By: NASH Ceftriaxone Sodium 1 gm/ (Sodium Chloride) 50 mls @ 100 mls/hr IV Q24H [facility] Last Infusion: 09/24/23 21:30 Dose: Infused Documented By: SURENDRA Metronidazole (Metronidazole 500 Mg Tablet) 500 mg PO Q12H [facility] Last Admin: 09/25/23 06:10 Dose: 500 mg Documented By: SURENDRA Ondansetron HCl (Ondansetron Hcl 4 Mg/2 Ml Vial) 4 mg IVPUSH QID PRN PRN Reason: Nausea Oxycodone HCl (Oxycodone Hcl Immed Release 5 Mg Tablet) 5 mg PO Q6H PRN PRN Reason: Pain, Severe (Pain Scale 7-10) Last Admin: 09/24/23 21:27 Dose: 5 mg Documented By: SURENDRA Sodium Chloride (0.9 % Sodium Chloride Flush 3 Ml Syringe) 3 ml [facility] Last Admin: 09/25/23 09:58 Dose: Not Given Documented By: ANTOINETTE Non-Admin Reason: IV Running Zolpidem Tartrate (Zolpidem Tartrate 5 Mg Tablet) 5 mg PO BEDTIME PRN PRN Reason: Insomnia Last Admin: 09/24/23 00:15 Dose: 5 mg Documented By: MILYAC Labs 09/24/23 06:39 09/23/23 08:34 Labs: Laboratory Results - last 24 hr 09/24/23 12:23 T.pallidum Ab (EIA) Nonreactive Hep Bs Antigen Negative Hepatitis C Ab (EIA) Nonreactive HIV 1&2 Ab/P24 Ag 4thGn Nonreactive Microbiology Microbiology Results: Microbiology 09/23/23 15:11 Blood Culture - Preliminary Blood - Venous No growth after 24 hours. 09/23/23 15:11 Blood Culture - Preliminary Blood - Venous No growth after 24 hours. Procedures Date of Service Date of Service: 09/25/23 Progress Note: A&P Assessment and plan (1) Trichomonas vaginitis: Status: Acute (2) Perirectal abscess: Status: Acute Plan Patient feeling better. She wishes to be discharged home. Time Spent With Patient Time: Total time managing care of this patient today ____ minutes. Quality Stroke Does the patient have a stroke diagnosis?: No VTE Prior VTE?: No VTE Risk Level:: Surgical - low VTE Device Contraindication: N/A - Device Ordered VTE Drug Contraindication: Treatment Not Indicated
--- NOTE | 2023-09-25 14:54 | MHC.CM.PN ---
MELVIN 09/24 Patient discharged to home self care.
--- NOTE | 2023-09-29 10:39 | PM.DS ---
DS: Providers Provider Date of Service: 09/25/23 Date of admission: 09/23/23 16:02 Date of discharge: 09/25/23 Primary care physician: Niki Castro MD Attending physician on admission: Zurdo Harris Attending physician on discharge: Micheal Smallwood DS: Diagnosis Discharge Diagnosis (1) Trichomonas vaginitis: Status: Acute (2) Perirectal abscess: Status: Acute DS: Summary Hospital Course Hospital Course: HPI AT ADMISSION: Elizabet Guillermo is a 38 year old female presenting with complaints of pain in the back extending into her perianal region. Pain began approximately 5-6 days prior to presentation. She was previously evaluated and started on antibiotics by mouth. She reports that the pain started in the coccyx area but then gradually radiated down to the perianal skin where it is today. Pain has increased in severity but she denies any bleeding or discharge from the skin. She also denies abdominal pain nausea, vomiting, diarrhea or constipation. She is urinating without difficulty. Patient underwent evaluation today in the emergency department was noted to have a WBC of 11.1. A CT pelvis revealed Indurated process in the left buttock cheek extending into the left gluteal crease and levator ani musculature. An infectious process related due to the introitus or vulva may well be present as well. HOSPITAL COURSE: She is admitted to the surgical service for further management of her progressing perirectal abscess which has not improved with oral antibiotic. She was started on IV antibiotics. Consultation requested for manager data warehouse for possible vaginal infection. Per MARKETING OPERATIONS INTERN recommendation, she was started on ceftriaxone 1 g Q24 IV, Flagyl 500 mg BID and doxycycline 100 mg BID GC and chlamydia, BV panel and Trichomonas collected which came back positive for trichomonas and gardenella. Full STD panel was therefore obtained. She reported improvement in her symptoms with IV antibiotic therapy. Electrocardiograph Repairer recommended Flagyl PO 500 mg BID for 14 more days after IV antibiotics discontinuation and follow up in the office in 1-2 weeks. She remained inpatient and received 3 days of IV antibiotics. She was overall improved but still had perianal pain with tenderness on exam and therefore this area was aspirated at bedside but was a dry tap. She felt ready for discharge that day. She was tolerating a solid diet with significant improvement in her pain. She was discharged to home on 09/25/23 in stable condition on a 14 day course of PO flagyl. Status at Discharge Functional status at discharge: independent ambulation Overall status at discharge: patient is progressing back to baseline Time Attestation Discharge coordination time: Less than 30 minutes Quality: Safe Use of Opioids Does Pt have an Active Cancer Diagnosis on the Problem List?: No Quality: Stroke Does the patient have a stroke diagnosis?: No Physical Exam Vital Signs: Vital Signs: Last Vital Signs Temp 98.5 F 09/25/23 11:40 Pulse 80 09/25/23 11:40 Resp 20 09/25/23 11:40 BP 114/64 09/25/23 11:40 Pulse Ox 96 09/25/23 11:40 O2 Del Method Room Air 09/25/23 11:40 BMI result Body Mass Index 23.6 GI: Palpation (GI): Soft to palpation and nontender Rectal Exam - Female: other (pinpoint tenderness at left lateral aspect) Discharge Plan Discharge Patient Disposition: Home, Self-Care Referrals: Niki Castro MD [Primary Care Provider] - 1 Week Zurdo Harris MD [Physician] - 1 Week Discharge Medications: New metronidazole 500 mg tablet 500 mg PO BID Qty: 30 0RF doxycycline hyclate 100 mg capsule 100 mg PO DAILY Qty: 20 0RF Discontinued cephalexin 500 mg capsule 500 mg PO Q6H 7 Days Qty: 28 0RF Discharge Orders: Discharge Order (Routine); Ordered 09/25/23 Ordered By: Micheal Smallwood Diet: Advance to usual diet Activity on Discharge: No heavy lifting Stand Alone Forms: Patient Portal Discharge page Care Plan Goals: Baseline health Health Concerns: No acute issues Plan of Treatment: For follow-up in surgical clinic Assessment: Stable Discharge Date/Time: 09/25/23 15:37
== END 2023-09-25 15:37 | disposition home or self-care (01) ==
LOC: HO.ED 07:52 → HO.EDOVER 17:22 → HO.IMC 23:06
PROVIDERS: Obstetrics & Gynecology; Registered Nurse Emergency; Admitting Provider Surgery; Emergency Provider Emergency Medicine; PCP Internal Medicine; Visit Provider Surgery
DX: K61.1 Rectal abscess (principal); A59.01 Trichomonal vulvovaginitis; R11.0 Nausea; M54.9 Dorsalgia, unspecified; L53.9 Erythematous condition, unspecified; R59.1 Generalized enlarged lymph nodes; Z86.16 Personal history of COVID-19
CPT/HCPCS: 0353U; 36415; 72193; 80048; 82947; 84702; 85025; 86780; 86803; 87040; 87340; 87389; 87480; 87510; 87660; 96365; 96366; 96367; 96375; 99222; 99285; J0696; J0736; J1170; J2543; J3371; Q9967

== ENCOUNTER → 2023-09-23 07:52 | Outpatient (BNV) | payer MEDICAID, SELFPAY | PROVIDERS: Emergency Provider Emergency Medicine; PCP Internal Medicine; Visit Provider Surgery | DX: A59.01 Trichomonal vulvovaginitis (principal); K61.1 Rectal abscess | CPT/HCPCS: 10160; 99024; 99222; 99232; 99238 ==

== ENCOUNTER → 2023-09-23 16:02 | Outpatient (BNV) | payer MEDICAID, SELFPAY | PROVIDERS: Admitting Provider Surgery; Emergency Provider Emergency Medicine; PCP Internal Medicine; Visit Provider Obstetrics & Gynecology | DX: K61.1 Rectal abscess (principal); A59.01 Trichomonal vulvovaginitis | CPT/HCPCS: 99222; 99232 ==

== ENCOUNTER 2023-10-07 09:23 | Outpatient (REF) | payer MEDICAID, SELFPAY ==
[2023-10-07 12:28] LABS: CT PCR NOT DETECTED (Not Detect.); NG PCR NOT DETECTED (Not Detect.)
[2023-10-08 11:02] LABS: BV Int Neg Control Negative (Negative); BV Int Pos Control Positive (Positive)
== END 2023-10-07 09:24 | disposition home or self-care (01) ==
LOC: HO.LNP 09:23
PROVIDERS: PCP Internal Medicine; Visit Provider Obstetrics & Gynecology
DX: A59.9 Trichomoniasis, unspecified (principal)
CPT/HCPCS: 0353U; 87480; 87510; 87660; 99212

== ENCOUNTER 2023-10-07 09:23 | Outpatient (AMB) | payer MEDICAID, SELFPAY ==
[2023-10-07 09:28] VITALS: BP 116/70; BMI 23.6
--- NOTE | 2023-10-07 09:28 | A.OFFVIS_ITS ---
Intake Vital Signs 10/07/23 09:28 Height 5 ft 1 in Weight 125 lb BMI 23.6 BP 116/70 Intake Visit Reasons: 2 weeks MARQUEZ Ceo Na Required: No Information Interpreted: non-clinical & clinical Instructor Industrial Design: Instructor Industrial Design Present Accompanied by: Self / Same As Patient Allergies latex [Latex] Allergy (Mild, Verified 10/07/23 09:29) RASH peanut [Peanut] Allergy (Mild, Verified 10/07/23 09:29) RASH Latex Gloves Allergy (Unknown, Uncoded 10/07/23 09:29) rash Is last menstrual period known: Yes Last menstrual period: 09/09/23 HPI HPI Comments History of Present Illness Details Presenting for it test of cure for Trichomonas. The patient was admitted for perirectal abscess was found out to have positive Trichomonas. GC/chlamydia and other STD serology were all negative. The patient was treated with Flagyl, informed her partner who get treated and did not have any unprot ected intercourse [facility] Medical History Trichomonas vaginitis Perirectal abscess COVID-19 Lymphadenopathy Right upper quadrant abdominal pain Physical exam Surgical History History of drainage of abscess Family History Father Hypertension Stroke Mother No problems noted. Maternal Aunt Breast cancer Social History Housing: Apartment Unable to assess alcohol history related to: Unknown Alcohol intake: current Alcohol intake frequency: holidays/special occasions only Alcohol type: beer and wine Patient Tobacco Use Status: Never used Tobacco e-Cigarette/Vaping Use: Never Used Second Hand Smoke Exposure: No service: No Current occupational status: unemployed Cognitive needs: No Hearing needs: No Vision needs: No Female Reproductive History Menstrual Date of last menstrual period: 09/09/23 Review of Systems Const All systems reviewed & are unremarkable except as noted in HPI and below Physical Exam Vital Signs: Last Vital Signs BP 116/70 10/07/23 09:28 BMI result Body Mass Index 23.6 General: Yes no CVA tenderness External Female Exam: normal external appearance and normal appearance of the urethra Speculum Exam - Vagina: normal appearance of the vagina, normal palpation, no lesions and no masses Speculum Exam - Cervix: normal appearance of the cervix, normal palpation, no lesions, no masses and nontender Bimanual exam- vagina & uterus: normal bimanual exam, normal palpation, uterine size normal, normal palpation, uterine shape normal, No Cervical tenderness present and non-tender Bimanual Exam- Adnexa, other: normal adnexae Back/Spine/Pelvis Back: no CVA tenderness Assessment & Plan Assessment & Plan (1) Trichomonas infection: Comment: Treated for MARQUEZ Code(s): A59.9 - Trichomoniasis, unspecified Plan: BV panel with GC/chlamydia taken. Instructions given the patient to follow up with Dr. Harris regarding pararectal abscess and to schedule a 3 months annual exam and repeat test of cure appointment Coding Level of Care Code Est Pt Level 3 (16903) Diagnoses Trichomonas infection A59.9
== END 2023-10-07 10:38 | disposition home or self-care (01) ==
PROVIDERS: PCP Internal Medicine; Visit Provider Obstetrics & Gynecology
DX: A59.9 Trichomoniasis, unspecified (principal)
CPT/HCPCS: 99213

== ENCOUNTER 2024-02-13 02:33 | Emergency (ER) | payer MEDICAID, SELFPAY ==
[2024-02-13 02:41] VITALS: BP 127/68; PULSE 89; RESP 16; TEMP 37.1; O2SAT 98; BMI 23.8
[2024-02-13 05:48] VITALS: BP 111/64; PULSE 87; RESP 16; TEMP 36.8; O2SAT 100
--- NOTE | 2024-02-13 06:34 | ED.GENADULT ---
HPI - General Adult General Chief complaint: General Medical Stated complaint: hives/rash, lymph node swelling? Time Seen by Provider: 02/13/24 06:21 Source: patient Mode of arrival: ambulatory Limitations: no limitations History of Present Illness HPI narrative: Patient is a 38-year-old female presenting to the emergency department with complaint of pruritic rash/hives which began around 6:00 a.m. yesterday. States rash began around right knee but has since spread to extremities and trunk. She states that she recently saw her commercial glazier, had a culture done and was being treated for an infection to her scalp with Bactrim. She is unsure if she has taken Bactrim in the past. She denies any swelling to lips/tongue, denies any shortness of breath or wheezing. Denies abdominal pain, nausea, vomiting, diarrhea. She took Benadryl and Zyrtec at home without relief. She also complains of lymph node swelling to back of her neck for several years. States she has asked PCP to investigate the cause of this and was told to come to the ED for those symptoms. She denies any weight loss, fevers, night sweats. complaint: rash Onset (ago): hour(s) Relieving factors: none Exacerbating factors: none Associated symptoms: denies other symptoms Treatments prior to arrival: other Related Data Previous Rx's ?Medication ?Instructions ?Recorded metronidazole 500 mg tablet 500 mg PO BID 7 days #14 tabs 11/04/23 prednisone 20 mg tablet 40 mg (2 x 20 mg) PO DAILY #8 tabs 02/13/24 Allergies Allergy/AdvReac Type Severity Reaction Status Date / Time latex [Latex] Allergy Mild RASH Verified 02/13/24 02:50 peanut [Peanut] Allergy Mild RASH Verified 10/07/23 09:29 Sulfa (Sulfonamide Allergy Hives Verified 02/13/24 07:01 Antibiotics) Latex Gloves Allergy Unknown rash Uncoded 02/13/24 02:50 Review of Systems Review of Systems: As per HPI. Yes all other systems are reviewed and are negative Constitutional: Constitutional: Reports as per HPI [facility] Past Medical History Medical History Trichomonas vaginitis Perirectal abscess COVID-19 Lymphadenopathy Right upper quadrant abdominal pain Physical exam Surgical History History of drainage of abscess Family History Family History Father Hypertension Stroke Mother No problems noted. Maternal Aunt Breast cancer Social History Social History Housing: Apartment Unable to assess alcohol history related to: Unknown Alcohol intake: current Alcohol intake frequency: holidays/special occasions only Alcohol type: beer and wine Patient Tobacco Use Status: Never used Tobacco e-Cigarette/Vaping Use: Never Used Second Hand Smoke Exposure: No Advance Directives: No Advance Directives Information Provided: No service: No Current occupational status: unemployed Cognitive needs: No Hearing needs: No Vision needs: No Physical Exam ED Vital Signs: Vital Signs - 24 hr 02/13/24 02:41 02/13/24 05:48 Temperature 98.8 F 98.2 F Pulse Rate 89 87 Respiratory Rate 16 16 Blood Pressure 127/68 111/64 Pulse Oximetry 98 100 Oxygen Delivery Method Room Air Room Air BMI result Body Mass Index 23.8 Vital signs have been reviewed and appear to be correct. Blood pressure normal. Heart rate normal. Respiratory rate normal. Temperature normal. Oxygen saturation normal. Const General: cooperative, healthy appearing and no acute distress Orientation/consciousness: oriented to person, oriented to place, oriented to time and patient oriented x3 Limitations: no limitations [facility] Head: Yes normocephalic and Yes atraumatic Ears: external ears normal General nose exam: Normal external nose present Face and sinus: Yes face symmetric Mouth: Normal oral and palatal mucosa present, lip normal, tongue normal, oropharynx normal, moist mucous membranes, no audible dysphonia and no drooling Throat: Yes posterior oropharynx normal, Yes uvula midline and No uvular edema Eyes Pupils: Equal, round and reactive pupils present Neck Neck: Yes normal visual inspection and Yes supple Lymphatic: lymphadenopathy bilateral posterior cervical multiple, small and soft Resp Effort & Inspection: normal respiratory effort and able to speak in complete sentences Auscultation: clear to auscultation bilaterally Cardio Rate: regular rate Rhythm: regular rhythm Heart sounds: S1 normal heart sound present and S2 normal heart sound present GI Palpation (GI): Soft to palpation and nontender Auscultation: normoactive bowel sounds General: Yes no CVA tenderness Back/Spine/Pelvis Back: no CVA tenderness Skin General skin exam: elasticity normal and turgor normal Rashes: rashes noted macules diffuse color red and surface blanching; fluctuant not assessed and nontender Neuro General: oriented to person, oriented to place, oriented to time, patient oriented x3, moves all extremities, no focal motor deficits and CN's II-XI intact bilaterally Cranial nerves: Yes Equal, round and reactive pupils present Cognition (Neuro): normal cognition Extrem General: Yes full ROM, Yes no pedal edema and Yes no calf tenderness Psych Mental Status: mental status grossly normal Affect: normal affect Thought process: Normal thought process present Medical Decision Making Medical Decision Making MDM Narrative: Patient is a 38-year-old female presenting to the emergency department with complaint of pruritic rash/hives which began around 6:00 a.m. yesterday. On exam patient is awake, A+Ox3, VS WNL, afebrile, normal neurological exam without focal deficits, physical exam findings as above. Given reported symptoms and physical exam findings, initial differential includes adverse medication reaction, contact dermatitis. Do not suspect DRESS, TEN/SJS, SSSS, TTP/DIC, RMSF, secondary syphillis, anaphylaxis. Patient medicated with prednisone and famotidine in the ED, advised to discontinue Bactrim and contact dermatology office to notify them of reaction and prescribe new antibiotics. Will prescribe short course of prednisone and advised patient to continue using Zyrtec as needed, but not to use Zyrtec and Benadryl together. Return precautions discussed at bedside. Discussed with patient that because her lymphadenopathy has been ongoing for several years and she is otherwise asymptomatic, she should follow up with PCP regarding this, and if PCP is unwilling to work patient up for this symptom, she should request to see a different provider within the practice. Patient verbalized understanding of and agreement with plan. Differential Diagnosis Differential Diagnoses: The differential diagnosis associated with the presentation includes As per MDM. External Record Review External record reviewed: Inpatient record, Office record and Outpatient record Prescription Management I considered prescription management with: Other Discharge Plan Discharge Clinical Impression: Urticaria Patient Disposition: Home, Self-Care Instructions: Urticaria (ED), General Allergic Reaction (ED) Additional Instructions: You were evaluated in the emergency department today for a rash which is likely due to the medication that you recently started, Bactrim. Please discontinue this medication immediately. You should contact your commercial glazier to discuss this reaction and request a new antibiotic to treat your condition. You should continue to use Zyrtec (cetirizine) and you are also being prescribed a course of steroids to decrease inflammation. You can also take [id number] famotidine daily for your symptoms. Please follow up with your primary care provider regarding your lymph node swelling. Return to the emergency department if you develop swelling to lips or tongue, difficulty swallowing or breathing, chest pain, severe abdominal pain, persistent vomiting, or any other concernging symptoms. Prescriptions: New prednisone 20 mg tablet 40 mg PO DAILY Qty: 8 0RF No Action metronidazole 500 mg tablet 500 mg PO BID 7 Days Qty: 14 0RF Print Language: Persian
[2024-02-13] MEDS: Famotidine 20 MG TABLET PO (07:01)
[2024-02-13] MEDS: predniSONE 20 MG TABLET 40 MG PO (07:01)
[2024-02-13 07:02] VITALS: BP 116/74; PULSE 89; RESP 18; O2SAT 100
--- NOTE | 2024-02-13 07:07 | PC.NURSE ---
pt is alert and oriented, skin appropriate for ethnicity, respirations even and unlabored, ls clear, pt reports starting abx yesterday and having hives all over, very itchy.
[2024-02-13 07:20] VITALS: BP 116/74; PULSE 89; RESP 18; TEMP -17.7; TEMP 0; O2SAT 100
== END 2024-02-13 07:22 | disposition home or self-care (01) ==
PROVIDERS: Emergency Provider Internal Medicine
DX: L50.0 Allergic urticaria (principal)
CPT/HCPCS: 99283; 99284

== ENCOUNTER → 2024-02-17 10:34 | Outpatient (BNVA) | payer MEDICAID, SELFPAY | PROVIDERS: PCP Internal Medicine; Visit Provider Obstetrics & Gynecology ==

== ENCOUNTER 2024-03-21 08:12 | Outpatient (AMB) | payer MEDICAID, SELFPAY ==
[2024-03-21 08:15] VITALS: BMI 23.7
--- NOTE | 2024-03-21 08:15 | A.OFFVIS_ITS ---
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 No complaints. Last Pap/HPV was 5 years ago, no records available [facility] Medical History Trichomonas vaginitis Perirectal abscess COVID-19 Lymphadenopathy Right upper quadrant abdominal pain Physical exam Surgical History Hx of tubal ligation History of drainage of abscess Family History Father Hypertension Stroke Mother No problems noted. Maternal Aunt Breast cancer Social History Housing: Apartment Unable to assess alcohol history related to: Unknown Alcohol intake: current Alcohol intake frequency: holidays/special occasions only Alcohol type: beer and wine Patient Tobacco Use Status: Never used Tobacco e-Cigarette/Vaping Use: Never Used Second Hand Smoke Exposure: No service: No Current occupational status: unemployed Cognitive needs: No Hearing needs: No Vision needs: No Female Reproductive History Menstrual Date of last menstrual period: 03/07/24 control method: permanent sterilization Date of last pap smear: 04/18/14 Review of Systems Const All systems reviewed & are unremarkable except as noted in HPI and below Card Reports as per HPI Resp Reports as per HPI GI Reports as per HPI and Reports no additional complaints Reports as per HPI Physical Exam Vital Signs: BMI result Body Mass Index 23.7 Const General: cooperative, healthy appearing and comfortable Chest Chest palpation & inspection: normal inspection of the chest and normal palpation of entire chest wall Breast/axilla inspection: normal inspection of the breasts and normal inspection of the axillae Breast/axilla palpation: normal palpation of the breasts, normal palpation of the axillae and no axillary lymphadenopathy Resp Effort & Inspection: normal respiratory effort Auscultation: clear to auscultation bilaterally Percussion: percussion normal Cardio Palpation: normal PMI Rate: regular rate Rhythm: regular rhythm Heart sounds: no murmurs and no rubs Peripheral pulses: Peripheral pulses 2+ throughout GI Inspection: Yes normal to inspection Palpation (GI): Soft to palpation, nontender, no guarding, not rigid and No hepatosplenomegaly present Percussion: Yes normal to percussion Auscultation: normal bowel sounds Rectal Exam - Female: deferred General: Yes bladder normal to palpation External Female Exam: No lesion Speculum Exam - Vagina: normal appearance of the vagina, normal palpation, normal vaginal discharge and not erythematous Speculum Exam - Cervix: normal appearance of the cervix and normal palpation Bimanual exam- vagina & uterus: normal bimanual exam, normal palpation, uterine size normal, bladder normal to palpation, consistency normal and normal palpation Bimanual Exam- Adnexa, other: normal adnexae, no masses and no tenderness Assessment & Plan Assessment & Plan (1) Well woman exam: Code(s): Z01.419 - Encounter for gynecological examination (general) (routine) without abnormal findings Category: Medical Plan: Cotesting done. Counseled the patient about the recommended dietary allowance of 1000 mg of Calcium & 600 IU of vitamin D. The patient was instructed to perform monthly self-breast exams and to schedule an annual exam in a year; All questions answered and the patient verbalized understanding. Instructed the patient to schedule annual exam in a year Coding Level of Care Code Est Pt Prev Care 18-39y(24047) Diagnoses Well woman exam Z01.419
== END 2024-03-21 08:34 | disposition home or self-care (01) ==
PROVIDERS: PCP Internal Medicine; Referring Provider Internal Medicine; Visit Provider Obstetrics & Gynecology
DX: Z01.419 Encounter for gynecological examination (general) (routine) without abnormal findings (principal)
CPT/HCPCS: 99395

== ENCOUNTER 2024-03-21 08:12 | Outpatient (REF) | payer MEDICAID, SELFPAY ==
[2024-03-28 12:49] LABS: HPV mRNA E6/E7 rflx Not Detected (Not Detected)
== END 2024-03-21 08:13 | disposition home or self-care (01) ==
LOC: HO.LNP 08:12
PROVIDERS: PCP Internal Medicine; Visit Provider Obstetrics & Gynecology
DX: Z01.419 Encounter for gynecological examination (general) (routine) without abnormal findings (principal)
CPT/HCPCS: 87624; 88142; 99395

== ENCOUNTER 2024-04-28 23:17 | Emergency (ER) | payer MEDICAID, SELFPAY ==
[2024-04-28 23:29] VITALS: BP 140/88; PULSE 87; RESP 16; TEMP 37.1; O2SAT 97; BMI 24.6
--- NOTE | 2024-04-29 00:58 | ED.GENADULT ---
HPI - General Adult General Chief complaint: Eye Problems Stated complaint: eye irritation Time Seen by Provider: 04/29/24 00:58 History of Present Illness ED Provider: Ion AYOUB narrative: The patient is a generally healthy 38-year-old female. She says that she had some lesions on her eyelids a week ago for which she went to an urgent care. She says that she was told that she had ?orbital cellulitis? and she was prescribed amoxicillin, prednisone, and erythromycin ointment. She took a 7 day course of these medications which at now finished. Over the last 2 days she has developed gradually worsening bilateral eye discomfort and photosensitivity. She says that she has bilateral eye pain and a burning sensation in the eyes. She has had increased watering of the eyes and a sense of irritation and blurred vision. No fever. No exposures to anyone that she has known of who has been ill. Related Data Previous Rx's ?Medication ?Instructions ?Recorded valacyclovir 500 mg tablet 500 mg PO Q8H 14 days #42 tabs 04/29/24 Allergies Allergy/AdvReac Type Severity Reaction Status Date / Time latex [Latex] Allergy Mild RASH Verified 04/28/24 23:36 peanut [Peanut] Allergy Mild RASH Verified 04/28/24 23:36 Sulfa (Sulfonamide Allergy Hives Verified 04/28/24 23:36 Antibiotics) Latex Gloves Allergy Unknown rash Uncoded 03/21/24 08:16 Review of Systems Review of Systems: Yes all other systems are reviewed and are negative PMFSH Past Medical History Medical History Trichomonas vaginitis Perirectal abscess COVID-19 Lymphadenopathy Right upper quadrant abdominal pain Physical exam Surgical History Hx of tubal ligation History of drainage of abscess Family History Family History Father Hypertension Stroke Mother No problems noted. Maternal Aunt Breast cancer Social History Social History Housing: Apartment Unable to assess alcohol history related to: Unknown Alcohol intake: current Alcohol intake frequency: holidays/special occasions only Alcohol type: beer and wine Patient Tobacco Use Status: Never used Tobacco e-Cigarette/Vaping Use: Never Used Second Hand Smoke Exposure: No Advance Directives: No Advance Directives Information Provided: Yes Do you have a plan to hurt others: No Plan service: No Current occupational status: unemployed Cognitive needs: No Hearing needs: No Vision needs: No Physical Exam ED Vital Signs: Vital Signs - 24 hr 04/28/24 23:29 04/29/24 02:02 04/29/24 02:11 Temperature 98.8 F 97.9 F 97.9 F Pulse Rate 87 90 90 Respiratory Rate 16 20 20 Blood Pressure 140/88 H 134/58 L 134/58 L Pulse Oximetry 97 100 100 Oxygen Delivery Method Room Air Room Air Room Air BMI result Body Mass Index 24.6 Const Other: The patient is awake and alert. She is pleasant and cooperative. She seems obviously photophobic. HENMT Other: The appearance of the head and the face are unremarkable. Face is symmetrical. Mucous membranes are moist. No abnormalities apparent to the face. Eyes Other: The patient was obviously photophobic. On gross inspection there was some very slight conjunctival injection bilaterally. Pupils were midsize and reactive to light. Extraocular movements were intact. Visual acuity was 20/50 in the right eye and 20/30 in the left eye. Slit-lamp exam without fluorescein staining revealed no perilimbal flushing. There was a suggestion of corneal irregularities bilaterally. Fluorescein staining showed dendritic like lesions on both corneas. The left cornea had 1 dendritic lesion in the lower half of the cornea. The right cornea had 2 dendritic lesions roughly in the center of the cornea, 1 in the top half and 1 in the lower half. Neck Other: Neck is supple Resp Effort & Inspection: normal respiratory effort Skin Other: No skin lesions on the eyelids or the face or elsewhere. Neuro Other: The patient is awake and alert with a normal mental status. Cranial nerves are grossly intact. She moves her extremities normally. She has a normal gait. She is grossly neurologically intact. Extrem Other: No peripheral edema Medications Administered Discontinued Medications Generic Name Dose Route Start Last Admin Trade Name Freq PRN Reason Stop Dose Admin Fluorescein Sodium 1 strip 04/29/24 01:16 04/29/24 01:21 Fluorescein Sodium Strip EYE-LEFT 04/29/24 01:17 1 strip ONCE ONE Administration Fluorescein Sodium 1 strip 04/29/24 01:16 04/29/24 01:21 Fluorescein Sodium Strip EYE-RIGHT 04/29/24 01:17 1 strip ONCE ONE Administration Tetracaine HCl 3 drop 04/29/24 01:06 04/29/24 01:10 Tetracaine Hcl 0.5% Oph Chasity 5 Ml Drops EYE-BOTH 04/29/24 01:07 3 drop ONCE ONE Administration Valacyclovir HCl 1,000 mg 04/29/24 01:32 04/29/24 02:06 Valacyclovir Hcl 1,000 Mg Tablet PO 04/29/24 01:33 1,000 mg ONCE ONE Administration Medical Decision Making Medical Decision Making [facility] Narrative: The patient is a 38-year-old female who presents with bilateral eye discomfort and photophobia which has been getting worse over the last 2 days. She reports that she just finished a course of amoxicillin, prednisone, and erythromycin ointment that was prescribed in an urgent care about a week ago. She says at that time she was told that she had ?orbital cellulitis? and that she had sores or lesions on her eyelids. She says she did not have the visual difficulty at that time that she is having now. My exam her visual acuities are 20/50 in the right eye and 20/30 in the left eye. Slit-lamp exam and fluorescein staining reveals dendritic lesions on both corneas. There is one dendritic lesion in the left eye and two dendritic lesions in the right eye. The appearance of these lesions seems highly consistent with herpes keratitis. Patient will be started on valacyclovir 500 mg t.i.d.. She was given the name and number of Dr. Claros the patient safety attendant with instructions to call the office 1st thing Wednesday morning for prompt follow up. If she has worse over the weekend before then I have advised her to go to the [facility] in [place] if she is able to get transportation.. 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 This is a viral infection. In order to treat this infection you have been started on oral antiviral pills. Please take the valacyclovir 3 times a day, approximately every 8 hours. You will need to follow up with an patient safety attendant in the next several days. You have been given the name and number of the [facility] patient safety attendant Dr. Claros. Please call his office first thing on Wednesday morning and explain that you have herpes keratitis and should be seen promptly. Usually the antiviral pills are sufficient treatment for this problem and my hope is that you will feel that you were starting to improve after 24 hours. However if at any point over the weekend you feel that your vision is getting significantly worse it might be appropriate for you to go to [place] and be seen at the [facility] at [address] [place] [address] in [place]. They have an emergency room dedicated to eye problems. Prescriptions: New valacyclovir 500 mg tablet 500 mg PO Q8H 14 Days Qty: 42 0RF Referrals: [facility] [Provider Group] Sergey Claros [Physician] - (bilateral dendritic keratitis, presumably herpetic) Stand Alone Forms: Work/School Release Interventions: ED Discharge Assessment Last Done: 04/29/24 02:11 Discharge Date/Time: 04/29/24 02:11 Print Language: Solomon Islander
[2024-04-29] MEDS: Tetracaine HCl 0.5% Oph Sol 5 ML DROPS 3 DROP EYE-BOTH (01:10)
[2024-04-29] MEDS: Fluorescein Sodium STRIP 1 STRIP EYE-LEFT (01:21)
[2024-04-29] MEDS: Fluorescein Sodium STRIP 1 STRIP EYE-RIGHT (01:21)
[2024-04-29 02:02] VITALS: BP 134/58; PULSE 90; RESP 20; TEMP 36.6; O2SAT 100
[2024-04-29] MEDS: valACYclovir HCL 1,000 MG TABLET 1000 MG PO (02:06)
[2024-04-29 02:11] VITALS: BP 134/58; PULSE 90; RESP 20; TEMP 36.6; O2SAT 100
== END 2024-04-29 02:11 | disposition home or self-care (01) ==
PROVIDERS: Emergency Provider Emergency Medicine; PCP Internal Medicine
DX: B00.52 Herpesviral keratitis (principal); H57.13 Ocular pain, bilateral
CPT/HCPCS: 99283

== ENCOUNTER 2024-06-17 15:52 | Emergency (ER) | payer MEDICAID, SELFPAY ==
[2024-06-17 15:59] VITALS: BP 126/83; PULSE 92; RESP 18; TEMP 36.5; O2SAT 100; BMI 24.2
--- NOTE | 2024-06-17 16:07 | ED_ITS ---
HPI - General Adult General Chief complaint: Allergic Reaction Stated complaint: rt eye rash/swollen/body rash Time Seen by Provider: 06/17/24 17:00 Source: patient Mode of arrival: ambulatory Limitations: no limitations History of Present Illness HPI narrative: Patient is a 38-year-old female who presents to the emergency department for evaluation of multiple areas of a pruritic rash. She states over the past 4 days she has developed a small maculopapular rash to the right antecubital fossa, left popliteal fossa. She has swelling beneath the left eye, puffy to the closest infra orbital region, with the edges papular and a demarcated border. Left posterior scalp with pruritic patch, raised border that is demarcated and a similar patch to the right lower posterior neck. All of which began as pruritic areas that has since expanded. She took a dose of Benadryl earlier today without much improvement. She denies recent URI symptoms, shortness of breath, difficulty breathing. Denies any known allergen exposure. Admits to a history of eczema but states that this presentation is atypical of her usual eczema Related Data Previous Rx's ?Medication ?Instructions ?Recorded valacyclovir 500 mg tablet 500 mg PO Q8H 14 days #42 tabs 04/29/24 cetirizine 10 mg tablet 10 mg PO DAILY #14 tabs 06/17/24 prednisone 10 mg tablet 10 mg PO DIRECTED #48 tabs 06/17/24 Allergies Allergy/AdvReac Type Severity Reaction Status Date / Time latex [Latex] Allergy Mild RASH Verified 06/17/24 16:03 peanut [Peanut] Allergy Mild RASH Verified 06/17/24 16:03 Sulfa (Sulfonamide Allergy Hives Verified 06/17/24 16:03 Antibiotics) Latex Gloves Allergy Unknown rash Uncoded 03/21/24 08:16 Review of Systems Review of Systems: Yes all other systems are reviewed and are negative PMFSH Past Medical History Attestation statement: The following information was validated with the patient. Source: old records reviewed Medical History Trichomonas vaginitis Perirectal abscess COVID-19 Lymphadenopathy Right upper quadrant abdominal pain Physical exam Surgical History Hx of tubal ligation History of drainage of abscess Family History Family History Father Hypertension Stroke Mother No problems noted. Maternal Aunt Breast cancer Social History Social History Housing: Apartment Unable to assess alcohol history related to: Unknown Alcohol intake: current Alcohol intake frequency: holidays/special occasions only Alcohol type: beer and wine Patient Tobacco Use Status: Never used Tobacco e-Cigarette/Vaping Use: Never Used Second Hand Smoke Exposure: No Advance Directives: No Advance Directives Information Provided: No Do you have a plan to hurt others: No Plan service: No Current occupational status: unemployed Cognitive needs: No Hearing needs: No Vision needs: No Physical Exam ED Vital Signs: Vital Signs - 24 hr 06/17/24 15:59 Temperature 97.7 F Pulse Rate 92 Respiratory Rate 18 Blood Pressure 126/83 Pulse Oximetry 100 Oxygen Delivery Method Room Air BMI result Body Mass Index 24.2 Appearance: Alert.?Oriented to person, place and time. No acute distress.?Normal affect. Eyes: Pupils equal, round and reactive to light.? EOMI. No nystagmus. ENT: Pharynx normal.?? Neck: Normal inspection.? Neck supple.? Cervical adenopathy? CVS: Heart sounds normal. Normal heart rate and rhythm.? Pulses normal.?? Respiratory: No respiratory distress.? Lung sounds clear to auscultation bilaterally?? Abdomen: Soft and non-tender. Normoactive bowel sounds. ? Skin: Skin warm and dry.? Normal skin color.? small maculopapular rash to the right antecubital fossa, left popliteal fossa. She has swelling beneath the left eye, puffy to the closest infra orbital region, with the edges papular and a demarcated border. Left posterior scalp with pruritic patch, raised border that is demarcated and a similar patch to the right lower posterior neck. Extremities: No lower extremity edema.? Neuro: Moves all extremities spontaneously. Sensation intact bilaterally. Ambulates with normal steady gait. Course Course Course Narrative: This is a rapid medical exam performed by Zo Gilliam NP: Additional HPI, ROS, PE not included below will be deferred to primary provider. Patient is a 38-year-old female presenting to the ED with complaint of redness and swelling around right eye for several days. States area is pruritic. Also developed rash to arms, neck after her eye symptoms. Medical Decision Making Medical Decision Making MDM Narrative: Patient is a 38-year-old female who presents emergency department for evaluation of a rash to the right eye, posterior neck, right antecubital flaccida and left popliteal fossa. She has a history of eczema but this is reportedly different from what she experiences with her eczema. All the areas that started as pruritic in nature and since progressed in size. She tried to apply a topical moisturizing eczema ointment to them without much improvement. The areas are not warm to touch, they are not painful, not localized more widespread. Appears less consistent with a cellulitis/periorbital cellulitis. I suspect that this is most likely a dermatitis either autoimmune/allergic/contact. Advised use of cetirizine in addition to a prednisone taper. She has no signs of systemic toxicity. Discussed worrisome signs and symptoms that would warrant re- evaluation in the emergency department. All questions answered. Stable for discharge. Differential Diagnosis Differential Diagnoses: The differential diagnosis associated with the presentation includes (See narrative above) Admission/Observation Consideration of admission/observation: Escalation of care including admission/observation considered External Record Review External record reviewed: Outpatient record Prescription Management I considered prescription management with: Other (See narrative above) Discharge Plan Discharge Clinical Impression: Dermatitis Patient Disposition: Home, Self-Care Instructions: Dermatitis (ED) Additional Instructions: As discussed, recurrent presentation is most concerning for dermatitis, an inflammatory reaction of the skin rather than an infectious process. For this, please continue taking Zyrtec/cetirizine daily In addition to the prednisone taper as prescribed; For the first 3 days take 60 mg (6 tablets) daily. Then take 50 mg (5 tablets) daily for 2 days. Then take 40 mg (4 tablets) daily for 2 days. Then take 30 mg (3 tablets) daily for 2 days. Then take 20 mg (2 tablets) daily for 2 days. Then take 10 mg (1 tablet) daily for 2 days. The taper will last a total of 13 days. 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 You may return back to emergency department with any new or worsening symptoms or concerns. Prescriptions: New prednisone 10 mg tablet 10 mg PO DIRECTED Qty: 48 0RF Rx Instructions: For the first 3 days take 60 mg (6 tablets) daily. Then take 50 mg (5 tablets) daily for 2 days. Then take 40 mg (4 tablets) daily for 2 days. Then take 30 mg (3 tablets) daily for 2 days. Then take 20 mg (2 tablets) daily for 2 days. Then take 10 mg (1 tablet) daily for 2 days. cetirizine 10 mg tablet 10 mg PO DAILY Qty: 14 0RF No Action valacyclovir 500 mg tablet 500 mg PO Q8H 14 Days Qty: 42 0RF Referrals: Niki Castro MD [Primary Care Provider] - Print Language: Prydeinig
[2024-06-17 17:59] VITALS: BP 126/83; PULSE 92; RESP 18; TEMP 36.5; O2SAT 100
== END 2024-06-17 18:21 | disposition home or self-care (01) ==
PROVIDERS: Emergency Provider Emergency Medicine Emergency Medical Services; PCP Internal Medicine
DX: L30.9 Dermatitis, unspecified (principal); R21 Rash and other nonspecific skin eruption
CPT/HCPCS: 99282; 99283

== ENCOUNTER 2024-11-27 15:39 | Inpatient (IN) | payer MEDICAID, SELFPAY ==
--- NOTE | ~2024-11-27 | CT_ITS ---
CLINICAL HISTORY: lower abdominal pain vomiting, pain, bandemia CT Abdomen and Pelvis W Contrast COMPARISON: CT - CT PELVIS W IV CON - 09/23/23 10:41 EST FINDINGS: Normal liver. Normal spleen. Normal kidneys. No urolithiasis or hydronephrosis. Normal adrenal glands. Normal pancreas. No visible cholelithiasis. No biliary dilation. No evidence of bowel obstruction or colitis. Normal appendix. Unremarkable bladder. Left ovarian mass containing fat and soft tissue densities now measures 2.3 cm (previously 2.4 cm). Right ovarian corpus luteum. Multiple poorly delineated uterine masses measuring up to 2.6 cm. Small physiologic free fluid in the pelvis. No pneumoperitoneum. No lymphadenopathy. No acute fracture. No abdominal aortic aneurysm. IMPRESSION: No acute findings. Similar left ovarian dermoid. Recommend gynecology referral if not worked up in the past. Probable uterine fibroids. Consider nonemergent pelvic ultrasound if indicated. This document has been electronically signed by: Anson Saini MD on 11/27/2024 23:17:25
[2024-11-27 16:23] VITALS: BP 146/76; PULSE 120; RESP 18; TEMP 36.6; O2SAT 99; BMI 25.5
--- NOTE | 2024-11-27 16:24 | ED.ABDPAIN ---
HPI - Abdominal Pain General Chief Complaint: Abdominal Pain Stated Complaint: Abd pain 2 days, fever Time Seen by Provider: 11/27/24 21:08 Source: patient Mode of arrival: ambulatory Limitations: no limitations History of Present Illness ED Provider: MAGDY AYOUB narrative: 39 yo female with prior STI here with c/o 2 days of lower abdominal pain that won't go away with n/v/d. No vaginal discharge. She took OTC meds yesterday no relief. Denies sick contacts, travel, abx use. She denies prior abdominal surgery. She has not been able to eat or drink. No IVDA. MD elicited complaint: abdominal pain Pertinent past history: none Onset (ago): day(s) (2) Pain Consistency: constant Location: RLQ, LLQ and suprapubic Severity: moderate Quality: aching Radiation: none Migration to: no migration Exacerbating factors: movement Relieving factors: nothing Associated symptoms: nausea, vomiting, diarrhea, fever and chills Related Data Previous Rx's ?Medication ?Instructions ?Recorded valacyclovir 500 mg tablet 500 mg PO Q8H 14 days #42 tabs 04/29/24 cetirizine 10 mg tablet 10 mg PO DAILY #14 tabs 06/17/24 prednisone 10 mg tablet 10 mg PO DIRECTED #48 tabs 06/17/24 Allergies Allergy/AdvReac Type Severity Reaction Status Date / Time latex [Latex] Allergy Mild RASH Verified 11/27/24 16:25 peanut [Peanut] Allergy Mild RASH Verified 11/27/24 16:25 Sulfa (Sulfonamide Allergy Hives Verified 11/27/24 16:25 Antibiotics) Latex Gloves Allergy Unknown rash Uncoded 03/21/24 08:16 Review of Systems Review of Systems Constitutional : No Weight loss, pos Fever, pos Chills ENT/Mouth : No sore throat, No Rhinorrhea Eyes: No Swelling, No Redness Cardiovascular : No Chest Pain, No SOB, NoEdema Respiratory : No Cough, No Sputum, No Wheezing Gastrointestinal : Positive Nausea, Positive Vomiting, positive Diarrhea, positive abdominal Pain, No Hematochezia, No Melena Genitourinary : No Dysuria, No Urinary Frequency, No Hematuria, No Urgency Musculoskeletal : No joint pain, No Myalgias, No Joint Swelling Skin : No Skin Lesions, No rash Neuro : No Weakness, No Numbness, No Dizziness, No Headache Psych : No Anxiety/Panic, No Depression All other systems reviewed and are negative. [facility] Past Medical History Attestation statement: The following information was validated with the patient. Source: old records reviewed Medical History Trichomonas vaginitis Perirectal abscess COVID-19 Lymphadenopathy Right upper quadrant abdominal pain Physical exam Surgical History Hx of tubal ligation History of drainage of abscess Family History Family History Father Hypertension Stroke Mother No problems noted. Maternal Aunt Breast cancer Social History Social History Housing: Apartment Unable to assess alcohol history related to: Unknown Alcohol intake: current Alcohol intake frequency: holidays/special occasions only Alcohol type: beer and wine Patient Tobacco Use Status: Never used Tobacco Smoked in Last 30 Days: No e-Cigarette/Vaping Use: Never Used Second Hand Smoke Exposure: No Advance Directives: No Advance Directives Information Provided: No Do you have a plan to hurt others: No Plan service: No Current occupational status: unemployed Cognitive needs: No Hearing needs: No Vision needs: No Physical Exam ED Vital Signs: Vital Signs - 24 hr 11/27/24 16:23 11/27/24 21:59 11/27/24 22:20 Temperature 97.8 F 99.4 F Pulse Rate 120 H 100 97 Respiratory Rate 18 18 18 Blood Pressure 146/76 H 127/72 138/72 Pulse Oximetry 99 99 98 Oxygen Delivery Method Room Air Room Air Room Air 11/27/24 22:58 11/27/24 23:31 Temperature 98.6 F 98.8 F Pulse Rate 100 89 Respiratory Rate 16 16 Blood Pressure 124/71 114/68 Pulse Oximetry 98 98 Oxygen Delivery Method Room Air Room Air BMI result Body Mass Index 25.5 Appearance: Alert. Oriented X3. No acute distress. Eyes: Pupils equal, round and reactive to light. ENT: Pharynx normal. Neck: Normal inspection. Neck supple. CVS: Normal heart rate and rhythm. Pulses normal. Respiratory: No respiratory distress. Breath sounds normal. Abdomen: Soft and moderate lower abdominal ttp no rebound or guarding Skin: Skin warm and dry. Normal skin color. Extremities: No lower extremity edema. Neuro: Oriented X 3. No motor deficit. No sensory deficit. CN2-12 intact Course Course Course Narrative: This is an RME: Additional HPI, ROS, PE not included below will be deferred to primary provider. RME assessment and note performed by: Elizabet Gonzales PA-C This is a 39-year-old female, hx eczema, with concerns for abdominal pain x2 days. +Subjective fevers. Reporting vomiting. +diarrhea. Reports no urinary symptoms. Reporting some chest pain. Reporting no chance of . Plan: Labs, UA, brunilda zarco in triage Medical Decision Making Medical Decision Making MDM Narrative: 39 yo female with PMH of STI here with c/o worsening lower abdominal pain n/v/d no sick contacts, travel, abx use. At this time she also reports chills. She vomited so much one time it looked brown but not on thinners. At this time patient will have labs, IVF, mag repletion, IV morphine for pain, CT scan for any findings such as appendicitis, renal colic, TOA, colitis. Empiric ceftriaxone given her fever/chills and bandemia of 15 Differential Diagnosis Differential Diagnoses: The differential diagnosis associated with the presentation includes appendicitis, TOA, UTI, enteritis Admission/Observation Consideration of admission/observation: Escalation of care including admission/observation considered given bandemia and concerns for sepsis will admit for blood culture trend Consult Healthcare Provider Management of the patient was discussed with: Hospitalist (will admit) Lab Data [facility] Lab Attestation statement: I reviewed the patient's lab results. 11/27/24 16:59 11/27/24 16:59 Labs: Lab Results 11/27/24 11/27/24 Range/Units 16:59 18:30 WBC 13.4 H (4.8-10.8) X10*3/uL RBC 4.66 D (4.20-5.50) X10*6/uL Hgb 13.7 D (12.0-16.0) g/dl Hct 39.6 (37.0-47.0) % MCV 85.0 (80.0-98.0) fL MCH 29.4 (27.0-33.0) pg MCHC 34.6 (31.0-35.0) g/dl RDW 12.2 (11.0-16.0) % Plt Count 269 (160-400) X10*3/uL MPV 9.3 L (9.4-12.3) fL Immature Gran % (Auto) Cancelled Neut % (Auto) Cancelled Lymph % (Auto) Cancelled [place] % (Auto) Cancelled Eos % (Auto) Cancelled Baso % (Auto) Cancelled Lymph # (Auto) Cancelled [place] # (Auto) Cancelled Eos # (Auto) Cancelled Baso # (Auto) Cancelled Abs Immat Gran (auto) Cancelled Absolute Neuts (auto) Cancelled Absolute Nucleated RBC 0.000 (0.0-0.012) X10*3/uL Nucleated RBC % (auto) 0.0 (0.0-0.2) /100WBC Neutrophils % (Manual) 81 H (45-73) % Band Neutrophils % 15 H (3-5) % Lymphocytes % (Manual) 3 L (20-40) % Eosinophils % (Manual) 1 (0-4) % Abs Neuts (Manual) 12.9 H (2.0-8.3) X10*3/uL Lymphocytes # (Manual) 0.4 L (1.2-4.9) X10*3/uL Eosinophils # (Manual) 0.1 (0.0-0.4) X10*3/uL Platelet Estimate NORMAL (NORMAL) Plt Morphology Comment NORMAL RBC Morphology NORMAL Smear Tech's Comments MANUAL DIFF Sodium 138 (135-145) mmol/L Potassium 3.7 (3.3-5.1) mmol/L Chloride 106 (96-108) mmol/L Carbon Dioxide 22 (22-29) mmol/L Anion Gap 14 (12-20) BUN 13 (9-16) mg/dL Creatinine 0.74 (0.5-1.4) mg/dL Estim Creat Clear Calc 85.6 Estimated GFR > 60 Random Glucose 109 (60-115) mg/dL Lactic Acid 1.3 (0.5-2.0) mmol/L Calcium 9.3 (8.4-10.2) mg/dL Magnesium 1.5 L (1.6-2.6) mg/dL Total Bilirubin 1.0 (0.0-1.0) mg/dL Direct Bilirubin 0.4 (0.0-0.5) mg/dL AST 24 (5-31) U/L ALT 14 (0-31) U/L Alkaline Phosphatase 62 (39-117) U/L Troponin I High Sens < 2.7 (<3.5-17.0) ng/L Total Protein 7.7 (6.5-8.0) g/dL Albumin 4.3 (3.5-5.0) g/dL Lipase 13 (8-78) U/L Beta HCG, Quant < 2 mIU/mL Urine Color Yellow Urine Appearance Clear Urine pH 5.5 (5.0-9.0) Ur Specific [place] >= 1.030 H (1.005-1.025) Urine Protein Trace (Neg-Trace) mg/dL Urine Glucose (UA) Negative (Negative) mg/dL Urine Ketones 80 (Negative) mg/dL Urine Blood Negative (Negative) Urine Nitrite Negative (Negative) Ur Leukocyte Esterase Trace H (Negative) Urine RBC 0-2 (0-2) /HPF Urine WBC 0-5 (0-5) /HPF Ur Squamous Epith Cells 6-10 (0-2) /HPF Urine Bacteria 2+ (None Seen) Hyaline Casts 0-2 (0-2) /LPF Influenza Type A (PCR) NEGATIVE (Negative) Influenza Type B (PCR) NEGATIVE (Negative) RSV RNA Qual (PCR) NEGATIVE (Negative) SARS-CoV-2 RNA (RT-PCR) NEGATIVE (Negative) Independent Interpretation I performed an independent interpretation of an: EKG and CT Scan Interpretation: Rate: 111 Rhythm: sinus tach [place]: normal Normal P waves. Normal [place]. Normal QRS complex. ST T wave : no CHRISTO, nonspecific ST T wave changes inf leads qTC: 459 prior studies: no CHRISTO The study has been interpreted contemporaneously by me. . Radiology Impression Discussion of test interpretation with radiology: I have reviewed the radiologist's reading. External Record Review External record reviewed: Inpatient record and Outpatient record Medications Administered Discontinued Medications Generic Name Dose Route Start Last Admin Trade Name Freq PRN Reason Stop Dose Admin Ceftriaxone Sodium 1 gm 11/27/24 21:25 11/27/24 21:52 Ceftriaxone Sodium 1 Gm Vial IVPUSH 11/27/24 21:26 1 gm ONCE ONE Administration Magnesium Sulfate 2 gm in 50 mls @ 25 mls/hr 11/27/24 21:24 11/27/24 23:44 Magnesium Sulfate/H2o IV 11/27/24 23:23 Infused ONCE ONE Infusion Lactated Ringer's 1,000 mls @ 999 mls/hr 11/27/24 21:24 11/27/24 22:20 Lr IV 11/27/24 22:24 Infused .Q1H1M ONE Infusion Acetaminophen 1,000 mg in 100 mls @ 400 mls/hr 11/27/24 21:25 11/27/24 22:23 Ofirmev IV 11/27/24 21:39 Infused ONCE ONE Infusion Iohexol 85 ml 11/27/24 22:42 11/27/24 22:43 Iohexol 350 Mg/Ml 100 Ml Infus..Btl IV 11/27/24 22:43 85 ml ONCE ONE Administration Morphine Sulfate 4 mg 11/27/24 21:24 11/27/24 21:40 Morphine Sulfate 4 Mg/Ml Cartridge IVPUSH 11/27/24 21:25 4 mg ONCE ONE Administration Protocol Ondansetron HCl 4 mg 11/27/24 16:24 11/27/24 16:28 Ondansetron Odt 4 Mg Tab.Rapdis TRANSLINGU 11/27/24 16:25 4 mg ONCE ONE Administration Ondansetron HCl 4 mg 11/27/24 21:24 11/27/24 21:40 Ondansetron Hcl 4 Mg/2 Ml Vial IVPUSH 11/27/24 21:25 4 mg ONCE ONE Administration Critical Care Time Critical Care Time Critical Care Time: Yes Total Critical Care Time: 35 Attestation: IVF for resuscitation, sepsis alert, IV morphine for pain I attest to this time spent taking care of the patient Discharge Plan Discharge Clinical Impression: Nausea & vomiting, Abdominal pain, Bandemia Patient Disposition: Admitted As Inpatient Prescriptions: No Action valacyclovir 500 mg tablet 500 mg PO Q8H 14 Days Qty: 42 0RF prednisone 10 mg tablet 10 mg PO DIRECTED Qty: 48 0RF Rx Instructions: For the first 3 days take 60 mg (6 tablets) daily. Then take 50 mg (5 tablets) daily for 2 days. Then take 40 mg (4 tablets) daily for 2 days. Then take 30 mg (3 tablets) daily for 2 days. Then take 20 mg (2 tablets) daily for 2 days. Then take 10 mg (1 tablet) daily for 2 days. cetirizine 10 mg tablet 10 mg PO DAILY Qty: 14 0RF Print Language: Thai
--- NOTE | 2024-11-27 16:25 | ECG_ITS ---
Test Reason : tachy Blood Pressure : */* mmHG Vent. Rate : 105 BPM Atrial Rate : 105 BPM P-R Int : 124 ms QRS Dur : 80 ms QT Int : 334 ms P-R-T Axes : 59 86 1 degrees QTcB Int : 441 ms Sinus tachycardia Otherwise normal ECG When compared with ECG of 27-Aug-2023 19:48, No significant change was found Referred By: Elizabet Gonzales Electronically Signed By: IAM MENEZES MD
[2024-11-27] MEDS: Ondansetron ODT 4 MG TAB.RAPDIS TRANSLINGU (16:28)
[2024-11-27 17:05] LABS: Hematocrit 39.6 % (37.0-47.0); Hemoglobin 13.7 g/dl (12.0-16.0); Mean Corpuscular HGB Conc 34.6 g/dl (31.0-35.0); Mean Corpuscular Hemoglobin 29.4 pg (27.0-33.0); Mean Platelet Volume 9.3 fL (9.4-12.3); Platelet Count 269 X10*3/uL (160-400); Red Blood Count 4.66 X10*6/uL (4.20-5.50); Red Cell Distribution Width 12.2 % (11.0-16.0); White Blood Count 13.4 X10*3/uL (4.8-10.8)
[2024-11-27 17:06] LABS: Appearance Urine Clear; Color Urine Yellow; Glucose Urine UA Negative (Negative); Leukocyte Esterase Urine Trace (Negative); Nitrite Urine Negative (Negative); PH 5.5 (5.0-9.0); Specific Gravity - Urine >= 1.030 (1.005-1.025); UMIC TRIGGER UACC YES; Urine Blood Negative (Negative); Urine Ketones 80 mg/dL (Negative); Urine Protein Trace mg/dL (Neg-Trace)
[2024-11-27 17:28] LABS: Neutrophils Percent Manual 81 % (45-73); SLIDE REVIEW MANUAL DIFF
[2024-11-27 17:29] LABS: Band Neutrophils Percent 15 % (3-5); Neutrophils Absolute Manual 12.9 X10*3/uL (2.0-8.3)
[2024-11-27 17:30] LABS: Alanine Aminotransferase 14 U/L (0-31); Albumin Level 4.3 g/dL (3.5-5.0); Anion Gap 14 (12-20); Aspartate Amino Transferase 24 U/L (5-31); Bilirubin Direct 0.4 mg/dL (0.0-0.5); Blood Urea Nitrogen 13 mg/dL (9-16); Calcium 9.3 mg/dL (8.4-10.2); Carbon Dioxide 22 mmol/L (22-29); Chloride 106 mmol/L (96-108); Creatinine Clr Calc Pharmacy 85.6; Estimated Glomerular Filt Rate > 60; Glucose Random 109 mg/dL (60-115); Lipase 13 U/L (8-78); Lymphocytes Absolute Manual 0.4 X10*3/uL (1.2-4.9); Lymphocytes Percent Manual 3 % (20-40); Magnesium 1.5 mg/dL (1.6-2.6); Potassium 3.7 mmol/L (3.3-5.1); Sodium 138 mmol/L (135-145); Total Protein 7.7 g/dL (6.5-8.0)
[2024-11-27 17:33] LABS: Troponin-I High Sensitivity < 2.7 ng/L (<3.5-17.0)
[2024-11-27 17:35] LABS: Eosinophils Absolute Manual 0.1 X10*3/uL (0.0-0.4); Eosinophils Percent Manual 1 % (0-4)
[2024-11-27 17:36] LABS: Platelet Estimate NORMAL (NORMAL); Platelet Morphology Comment NORMAL; RBC Morphology NORMAL
[2024-11-27 17:41] LABS: Bacteria Urine 2+ (None Seen); Hyaline Casts Urine 0-2 /LPF (0-2); RBC Urine 0-2 /HPF (0-2); WBC Urine 0-5 /HPF (0-5)
[2024-11-27 17:50] LABS: Alkaline Phosphatase 62 U/L (39-117)
[2024-11-27 17:52] LABS: Influenza A PCR NEGATIVE (Negative); Influenza B PCR NEGATIVE (Negative); Resp Syncy Virus RNA Qual PCR NEGATIVE (Negative); SARS COV2 PCR INHOUSE NEGATIVE (Negative)
[2024-11-27 18:55] LABS: Lactic Acid 1.3 mmol/L (0.5-2.0)
[2024-11-27] MEDS: Magnesium Sulfate/H2O 2 GM/50 ML PIGGYBACK IV (21:39)
[2024-11-27] MEDS: Lactated Ringers 1,000 ML 999 ML IV (21:39)
[2024-11-27] MEDS: Acetaminophen 1,000 MG/100 ML PIGGYBACK 400 MG IV (21:39)
[2024-11-27] MEDS: Morphine Sulfate 4 MG/ML CARTRIDGE IVPUSH (21:40)
[2024-11-27] MEDS: ondansetron HCL 4 MG/2 ML VIAL IVPUSH (21:40)
[2024-11-27] MEDS: cefTRIAXone sodium 1 GM VIAL IVPUSH (21:52)
[2024-11-27 21:59] VITALS: BP 127/72; PULSE 100; RESP 18; O2SAT 99
[2024-11-27 22:07] LABS: HCG Quantitative < 2 mIU/mL
[2024-11-27 22:20] VITALS: BP 138/72; PULSE 97; RESP 18; TEMP 37.4; O2SAT 98
[2024-11-27] MEDS: iohexoL 350 MG/ML 100 ML INFUS..BTL 85 ML IV (22:43)
[2024-11-27 22:58] VITALS: BP 124/71; PULSE 100; RESP 16; TEMP 37; O2SAT 98
[2024-11-27 23:31] VITALS: BP 114/68; PULSE 89; RESP 16; TEMP 37.1; O2SAT 98
[2024-11-28 00:42] VITALS: BP 132/80; PULSE 91; RESP 20; TEMP 37; O2SAT 97
--- NOTE | 2024-11-28 00:49 | P.HPHOSP_ITS ---
History of Present Illness Date of Service: 11/28/24 Attending physician on admission: eRbecca Pereira Chief Complaint: lower abd pain Patient is a 39-year-old female with a past medical history significant for history of STI, who presented to the ED with lower abdominal pain for the past 2 days with associated nausea, vomiting and diarrhea. She describes a watery diarrhea as watery without any blood. She denies any recent travel or antibiotics. She reports fever, chills, nausea and vomiting. She reports the vomiting has been severe enough today where she has not been able to tolerate anything by mouth. She had 1 episode of darker brown colored roommate but no coffee-ground emesis or hematemesis. Her symptoms have been persistent for the past 2 days. She denies any urinary symptoms including dysuria, frequency, hematuria or urgency. She also denies any vaginal discharge. Review of Systems 2 Constitutional: Constitutional: Denies body ache(s), Reports chills, Denies fatigue, Reports fever(s) and Denies headache(s) Eyes: Eyes: Denies change in vision ENT: Denies headache(s), Denies nasal congestion, Denies nasal discharge, Denies post nasal drip and Denies sore throat Cardiovascular: Cardiovascular: Denies syncope, Denies rapid heart rate, Denies leg edema and Denies dyspnea Respiratory: Respiratory: Denies chest congestion, Denies cough, Denies dyspnea and Denies wheezing Gastrointestinal: Gastrointestinal: Denies melena, Denies hematochezia, Denies coffee ground emesis, Reports diarrhea, Reports nausea, Reports vomiting and Denies hematemesis Genitourinary: Genitourinary: Denies dysuria, Denies urinary urgency and Denies vaginal discharge Musculoskeletal: Musculoskeletal: Denies myalgias Integumentary/Breasts: Skin/Breast: Denies rash Neurologic: Denies confusion, Denies syncope and Denies headache(s) Psychiatric: Psychiatric: Denies confusion Endocrine: Endocrine: Denies fatigue Hematologic/Lymphatic: Hematologic/Lymphatic: Denies easy bleeding and Denies easy bruising Allergic/Immunologic: Allergic/Immunologic: Denies wheezing [facility] Medical History Trichomonas vaginitis Perirectal abscess COVID-19 Lymphadenopathy Right upper quadrant abdominal pain Physical exam Functional capacity: independent ambulation Family History Father Hypertension Stroke Mother No problems noted. Maternal Aunt Breast cancer Surgical History Hx of tubal ligation History of drainage of abscess Social History Housing: Apartment Unable to assess alcohol history related to: Unknown Alcohol intake: current Alcohol intake frequency: holidays/special occasions only Alcohol type: beer and wine Patient Tobacco Use Status: Never used Tobacco Smoked in Last 30 Days: No e-Cigarette/Vaping Use: Never Used Second Hand Smoke Exposure: No Advance Directives: No Advance Directives Information Provided: No Do you have a plan to hurt others: No Plan service: No Current occupational status: unemployed Cognitive needs: No Hearing needs: No Vision needs: No Narrative: Social occasional alcohol, no drug use or smoking Meds Allergies Allergy/AdvReac Type Severity Reaction Status Date / Time latex [Latex] Allergy Mild RASH Verified 11/27/24 16:25 peanut [Peanut] Allergy Mild RASH Verified 11/27/24 16:25 Sulfa (Sulfonamide Allergy Hives Verified 11/27/24 16:25 Antibiotics) Latex Gloves Allergy Unknown rash Uncoded 03/21/24 08:16 Physical Exam 2 Vital Signs and Narrative: Vital Signs: Last Vital Signs Temp 98.8 F 11/27/24 23:31 Pulse 89 11/27/24 23:31 Resp 16 11/27/24 23:31 BP 114/68 11/27/24 23:31 Pulse Ox 98 11/27/24 23:31 O2 Del Method Room Air 11/27/24 23:31 BMI result Body Mass Index 25.5 General: AOx3, no acute distress Resp: CTA bilaterally CVS: S1, S2, mild tachycardia, normal rhythm GI: +BS, suprapubic tenderness, no distention Skin: Warm, dry Neuro: Cranial nerves II-XII grossly intact bilaterally. Motor grossly intact bilaterally Extremities: No lower extremity edema Psych: Appropriate affect Const: General: No confusion Orientation/consciousness: No confusion Neuro: General: No confusion Results Labs 11/27/24 16:59 11/27/24 16:59 Labs: Laboratory Results - last 24 hr 01/20/25 01/20/25 16:59 18:30 MCV 85.0 MCH 29.4 MCHC 34.6 RDW 12.2 Plt Count 269 MPV 9.3 L Immature Gran % (Auto) Cancelled Neut % (Auto) Cancelled Lymph % (Auto) Cancelled [place] % (Auto) Cancelled Eos % (Auto) Cancelled Baso % (Auto) Cancelled Lymph # (Auto) Cancelled [place] # (Auto) Cancelled Eos # (Auto) Cancelled Baso # (Auto) Cancelled Abs Immat Gran (auto) Cancelled Absolute Neuts (auto) Cancelled Absolute Nucleated RBC 0.000 Nucleated RBC % (auto) 0.0 Neutrophils % (Manual) 81 H Band Neutrophils % 15 H Lymphocytes % (Manual) 3 L Eosinophils % (Manual) 1 Abs Neuts (Manual) 12.9 H Lymphocytes # (Manual) 0.4 L Eosinophils # (Manual) 0.1 Platelet Estimate NORMAL Plt Morphology Comment NORMAL RBC Morphology NORMAL Smear Tech's Comments MANUAL DIFF Anion Gap 14 Estim Creat Clear Calc 85.6 Estimated GFR > 60 Random Glucose 109 Lactic Acid 1.3 Calcium 9.3 Magnesium 1.5 L Total Bilirubin 1.0 Direct Bilirubin 0.4 AST 24 ALT 14 Alkaline Phosphatase 62 Troponin I High Sens < 2.7 Total Protein 7.7 Albumin 4.3 Lipase 13 Beta HCG, Quant < 2 Urine Color Yellow Urine Appearance Clear Urine pH 5.5 Ur Specific [place] >= 1.030 H Urine Protein Trace Urine Glucose (UA) Negative Urine Ketones 80 Urine Blood Negative Urine Nitrite Negative Ur Leukocyte Esterase Trace H Urine RBC 0-2 Urine WBC 0-5 Ur Squamous Epith Cells 6-10 Urine Bacteria 2+ Hyaline Casts 0-2 Influenza Type A (PCR) NEGATIVE Influenza Type B (PCR) NEGATIVE RSV RNA Qual (PCR) NEGATIVE SARS-CoV-2 RNA (RT-PCR) NEGATIVE Assessment and Plan (1) Sepsis: Status: Acute (2) Diarrhea: Status: Acute (3) Abdominal pain: Qualifiers: Abdominal location: epigastric Qualified Code(s): R10.13 - Epigastric pain Status: Acute (4) Nausea & vomiting: Qualifiers: Vomiting type: unspecified Qualified Code(s): R11.2 - Nausea with vomiting, unspecified Status: Acute Plan Patient is a 39-year-old female with a past medical history significant for history of STI, who presented to the ED with lower abdominal pain for the past 2 days with associated nausea, vomiting and diarrhea. Sepsis secondary to presumed GI source - WBC 13.4, bands 15%, fluctuant tachycardia, lactic acid normal, blood cultures x2 pending, no severe sepsis - UA negative - abdominopelvic CT without acute findings - GI panel/C diff ordered - received 1 L IV fluids in ED - start Flagyl and ceftriaxone for presumed gastrointestinal etiology - monitor CBC and BMP Hypomagnesemia - secondary to diarrhea and vomiting - magnesium repleted Full code VTE prophylaxis: Lovenox Patient with sepsis secondary to presumed GI source, requiring admission for at least 2 midnights stay for IV antibiotics and monitoring.. Quality Stroke Does the patient have a stroke diagnosis?: No VTE Prior VTE?: No VTE Risk Level:: Medical - moderate - high VTE Device Contraindication: Treatment Not Indicated VTE Drug Contraindication: N/A - Med Ordered
[2024-11-28] MEDS: metroNIDAZOLE/NS 500 MG/100 ML PIGGYBACK 100 MG IV ×3 (01:38→16:52)
[2024-11-28] MEDS: Enoxaparin Sodium 40 MG/0.4 ML SYRINGE SUBCUT (01:40)
--- NOTE | 2024-11-28 03:00 | PC.NURSE ---
pt states she feels better after pain meds, unable to provide stool sample at this time.
[2024-11-28 05:11] VITALS: BP 113/67; PULSE 75; RESP 14; TEMP 36.7; O2SAT 98
[2024-11-28 05:58] LABS: MANUAL DIFF FLAG NO
[2024-11-28 06:12] LABS: Basophils Percent Auto 0.2 % (0-2); Eosinophils Absolute Auto 0.2 X10*3/uL (0.0-0.4); Eosinophils Percent Auto 2.7 % (0-4); Hematocrit 36.5 % (37.0-47.0); Hemoglobin 12.7 g/dl (12.0-16.0); Imm Gran Abs Auto 0.04 X10*3/uL (0.00-0.03); Imm Gran Pct Auto 0.7 % (0.0-0.4); Lymphocytes Percent Auto 15.9 % (20-40); Mean Corpuscular HGB Conc 34.8 g/dl (31.0-35.0); Mean Corpuscular Hemoglobin 29.7 pg (27.0-33.0); Mean Corpuscular Volume 85.3 fL (80.0-98.0); Mean Platelet Volume 9.5 fL (9.4-12.3); Monocytes Absolute Auto 0.4 X10*3/uL (0.1-1.2); Monocytes Percent Auto 6.5 % (2-11); Neutrophils Absolute Auto 4.4 x10*3/uL (2.0-8.3); Platelet Count 240 X10*3/uL (160-400); Red Blood Count 4.28 X10*6/uL (4.20-5.50); Red Cell Distribution Width 12.4 % (11.0-16.0)
[2024-11-28 06:15] LABS: Anion Gap 9 (12-20); Blood Urea Nitrogen 10 mg/dL (9-16); Calcium 8.2 mg/dL (8.4-10.2); Carbon Dioxide 22 mmol/L (22-29); Chloride 107 mmol/L (96-108); Creatinine Clr Calc Pharmacy 100.6; Estimated Glomerular Filt Rate > 60; Glucose Random 89 mg/dL (60-115); Magnesium 2.2 mg/dL (1.6-2.6); Potassium 3.4 mmol/L (3.3-5.1); Sodium 135 mmol/L (135-145)
--- NOTE | 2024-11-28 07:38 | P.EN_ITS ---
Event Note Date of Service: 11/28/24 Event Note: 39-year-old female with a past medical history significant for history of STI, admitted to [facility] with 2 days of nausea vomiting, abdominal pain, diarrhea, fever, chills noted to have tachycardia/leukocytosis admitted with sepsis likely due to gastroenteritis. Patient feeling better since admission denies further nausea vomiting no diarrhea stool studies not collected patient feeling hungry and wishes diet to be up titrated Sepsis secondary to presumed GI source - WBC 13.4, bands 15% on admission WBC normalized, tachycardia resolved, lactic acid normal, blood cultures x2 pending, no severe sepsis - UA negative - abdominopelvic CT without acute findings - GI panel/C diff pending - s/p 1 L IV fluids - cont. iv Flagyl and ceftriaxone for presumed gastrointestinal etiology - monitor CBC and BMP -advance diet to full liquids and as tolerated Hypomagnesemia - secondary to diarrhea and vomiting, repleted, magnesium normalized to 2.2 Not on home medication Full code VTE prophylaxis: Lovenox Patient with sepsis secondary to presumed GI source, requires continued monitoring for IV antibiotics and for tolerance of by mouth intake. Time Spent With Patient Time: Total time managing care of this patient today ____ minutes.
[2024-11-28] MEDS: 0.9 % Sodium Chloride Flush 3 ML SYRINGE IVFLUSH ×3 (08:24→19:30)
--- NOTE | 2024-11-28 08:27 | PC.NURSE ---
Pt attempted to use bathroom, reports no more diarrhea. Unable to get stool sample at this time
--- NOTE | 2024-11-28 09:38 | ECG_ITS ---
Test Reason : tachycardia Blood Pressure : */* mmHG Vent. Rate : 78 BPM Atrial Rate : 78 BPM P-R Int : 154 ms QRS Dur : 90 ms QT Int : 374 ms P-R-T Axes : 47 71 20 degrees QTcB Int : 426 ms Normal sinus rhythm Normal ECG When compared with ECG of 27-Nov-2024 21:50, No significant change was found Referred By: Elizabet Gonzales Electronically Signed By:
--- NOTE | 2024-11-28 09:39 | PHA.MEDREC ---
Addendum entered by Isi Rodarte RPh 11/28/24 09:40: reviewed by [facility]. Original Note: Pharmacy Consult ? Medication Reconciliation Pharmacy has completed the medication reconciliation. Spoke with patient and she states she is not taking any medications at this time.
[2024-11-28 15:44] VITALS: BP 117/75; PULSE 83; RESP 20; TEMP 36.6; O2SAT 99
[2024-11-28] MEDS: Morphine Sulfate 4 MG/ML CARTRIDGE IVPUSH (19:29)
[2024-11-28] MEDS: cefTRIAXone sodium 1 GM VIAL IVPUSH (21:00)
[2024-11-28 23:53] VITALS: BP 108/59; PULSE 72; RESP 18; TEMP 36.7; O2SAT 99
[2024-11-29] MEDS: Enoxaparin Sodium 40 MG/0.4 ML SYRINGE SUBCUT (00:03)
[2024-11-29 07:51] VITALS: BP 106/65; PULSE 69; RESP 16; TEMP 36.3; O2SAT 98
[2024-11-29] MEDS: metroNIDAZOLE/NS 500 MG/100 ML PIGGYBACK 100 MG IV ×2 (08:03)
[2024-11-29] MEDS: 0.9 % Sodium Chloride Flush 3 ML SYRINGE IVFLUSH (08:05)
--- NOTE | 2024-11-29 12:19 | MHC.CM.PN ---
pt lives with children has own ride [employer] and is indepdent dc plan home n/s
--- NOTE | 2024-11-29 13:20 | P.DS_ITS ---
DS: Providers Provider Date of Service: 11/29/24 Date of admission: 11/28/24 00:55 Date of discharge: 11/29/24 Primary care physician: Niki Castro MD DS: Diagnosis Discharge Diagnosis (1) Sepsis: Status: Acute (2) Diarrhea: Status: Acute (3) Abdominal pain: Status: Acute (4) Nausea & vomiting: Status: Acute DS: Summary Hospital Course Hospital Course: 39-year-old female with a past medical history significant for history of STI, who presented to the ED with lower abdominal pain for the past 2 days with ass ociated nausea, vomiting and diarrhea. She describes a watery diarrhea as watery without any blood. She denies any recent travel or antibiotics. She reports fever, chills, nausea and vomiting. She reports the vomiting has been severe enough today where she has not been able to tolerate anything by mouth. She had 1 episode of darker brown colored roommate but no coffee-ground emesis or hematemesis. Her symptoms have been persistent for the past 2 days. She denies any urinary symptoms including dysuria, frequency, hematuria or urgency. She also denies any vaginal discharge. Hospital Course Patient admitted to general medical floor and volume resuscitated with IV fluids. Over the course of the next 24 hours her diarrhea subsided and she was tolerating diet. She was started empirically on ceftriaxone and Flagyl and will be discharged on an oral course of Flagyl. She can follow up with the PCP next available Time Attestation Discharge Coordination Time (in mins): 35 Quality: Safe Use of Opioids Does Pt have an Active Cancer Diagnosis on the Problem List?: No Quality: Stroke Does the patient have a stroke diagnosis?: No Physical Exam Vital Signs: Vital Signs: Last Vital Signs Temp 97.4 F 11/29/24 07:51 Pulse 69 11/29/24 07:51 Resp 16 11/29/24 07:51 BP 106/65 11/29/24 07:51 Pulse Ox 98 11/29/24 07:51 O2 Del Method Room Air 11/29/24 07:51 BMI result Body Mass Index 25.5 Const: Other: Awake alert no acute distress Resp: Other: Clear to auscultation bilaterally no rales rhonchi or wheezes Cardio: Other: No S4; positive S1-S2; no S3 murmurs rubs or gallops GI: Other: Soft nontender nondistended normoactive bowel sounds Neuro: Other: Cranial nerves 2-12 grossly intact as tested. Motor is 5/5 all extremities. Sensation is intact. Cognition appropriate. Gait steady Extrem: Other: No edema bilaterally DS: Data Data Completed and Pending Labs on day of discharge: Preliminary micro results at discharge 11/27/24 21:31 Blood Culture - Preliminary Blood - Venous No growth after 24 hours. 11/27/24 18:30 Blood Culture - Preliminary Blood - Venous No growth after 24 hours. Discharge Plan Discharge Anticipated Discharge Date/Time: 11/29/24 13:14 Patient Disposition: Home, Self-Care Discharge Diagnosis: Gastroenteritis Referrals: Niki Castro MD [Primary Care Provider] - 1 Week Discharge Medications: No Action No Known Home Meds Discharge Orders: Discharge Order (Routine); Ordered 11/29/24 Ordered By: Sergey Vazquez Diet: Advance to usual diet Activity on Discharge: As tolerated Stand Alone Forms: Patient Portal Discharge page Print Language: Citizen Of [place] Care Plan Goals: Advance diet as tolerated. Complete course of Flagyl 3 times daily. No alcohol when on Flagyl. Health Concerns: Follow up with your primary care next available Plan of Treatment: Return if recurrent or worsening symptoms Assessment: See discharge summary
[2024-11-29 14:15] VITALS: BP 120/80; PULSE 98; RESP 16; TEMP 36.4; O2SAT 96
== END 2024-11-29 14:08 | disposition home or self-care (01) | DRG 720 ==
LOC: HO.ED 11-28 00:01 → HO.EDOVER 11-28 00:56 → HO.S3 11-28 14:46
PROVIDERS: Physician Assistant Medical; Admitting Provider Student in an Organized Health Care Education/Training Program; Emergency Provider Emergency Medicine; PCP Internal Medicine; Visit Provider Hospitalist
DX: A41.9 Sepsis, unspecified organism (principal); E83.42 Hypomagnesemia; K52.9 Noninfective gastroenteritis and colitis, unspecified; Z20.822 Contact with and (suspected) exposure to COVID-19
CPT/HCPCS: 0241U; 36415; 74177; 80048; 80076; 81001; 83605; 83690; 83735; 84484; 84702; 85007; 85025; 85027; 87040; 93005; 99285; J0131; J0696; J1650; J1836; J2270; J2405; J3475; J7120; Q9967

== ENCOUNTER → 2024-11-27 16:25 | Outpatient (BNV) | payer MEDICAID, SELFPAY | PROVIDERS: Admitting Provider Student in an Organized Health Care Education/Training Program; Emergency Provider Emergency Medicine; PCP Internal Medicine; Visit Provider Internal Medicine Cardiovascular Disease | DX: R00.0 Tachycardia, unspecified (principal) | CPT/HCPCS: 93010 ==

== ENCOUNTER → 2024-11-27 21:24 | Outpatient (BNV) | payer MEDICAID, SELFPAY | PROVIDERS: Emergency Provider Emergency Medicine; PCP Internal Medicine; Visit Provider Radiology Diagnostic Radiology | DX: R10.30 Lower abdominal pain, unspecified (principal); R11.10 Vomiting, unspecified; D72.825 Bandemia | CPT/HCPCS: 74177 ==

== ENCOUNTER → 2024-11-28 00:55 | Outpatient (BNV) | payer MEDICAID, SELFPAY | PROVIDERS: Admitting Provider Student in an Organized Health Care Education/Training Program; Emergency Provider Emergency Medicine; PCP Internal Medicine; Visit Provider Physician Assistant | DX: A41.9 Sepsis, unspecified organism (principal); R19.7 Diarrhea, unspecified; R10.13 Epigastric pain; R11.2 Nausea with vomiting, unspecified | CPT/HCPCS: 99239 ==

== ENCOUNTER 2025-07-10 09:31 | Outpatient (AMB) | payer MEDICAID, SELFPAY ==
--- NOTE | 2025-07-10 09:33 | MHC.OFFVIS ---
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 No complaints. Last Pap/HPV was negative in 03/31 No previous screening Mammogram [facility] Medical History Trichomonas vaginitis Perirectal abscess COVID-19 Lymphadenopathy Right upper quadrant abdominal pain Physical exam Surgical History Hx of tubal ligation History of drainage of abscess Family History Father Hypertension Stroke Mother No problems noted. Maternal Aunt Breast cancer Social History Household Members: Children Housing: House Do you presently have visiting nurse or other home services: No Unable to assess alcohol history related to: Unknown Alcohol intake: current Alcohol intake frequency: holidays/special occasions only Alcohol type: beer and wine Patient Tobacco Use Status: Never used Tobacco e-Cigarette/Vaping Use: Never Used Second Hand Smoke Exposure: No service: No Current occupational status: unemployed Cognitive needs: No Hearing needs: No Vision needs: No Female Reproductive History Menstrual Date of last menstrual period: 07/07/25 control method: permanent sterilization Permanent Sterilization: BTL Total pregnancies: 2 Full term: 2 Number of Living Children: 2 Date of last pap smear: 03/21/24 (neg pap and hpv) Review of Systems Const All systems reviewed & are unremarkable except as noted in HPI and below Card Reports as per HPI Resp Reports as per HPI GI Reports as per HPI and Reports no additional complaints Reports as per HPI Physical Exam Vital Signs: Last Vital Signs BP 120/72 07/10/25 09:34 BMI result Body Mass Index 25.5 Const General: cooperative, healthy appearing and comfortable Chest Chest palpation & inspection: normal inspection of the chest and normal palpation of entire chest wall Breast/axilla inspection: normal inspection of the breasts and normal inspection of the axillae Breast/axilla palpation: normal palpation of the breasts, normal palpation of the axillae and no axillary lymphadenopathy Resp Effort & Inspection: normal respiratory effort Auscultation: clear to auscultation bilaterally Percussion: percussion normal Cardio Palpation: normal PMI Rate: regular rate Rhythm: regular rhythm Heart sounds: no murmurs and no rubs Peripheral pulses: Peripheral pulses 2+ throughout GI Inspection: Yes normal to inspection Palpation (GI): Soft to palpation, nontender, no guarding, not rigid and No hepatosplenomegaly present Percussion: Yes normal to percussion Auscultation: normal bowel sounds Rectal Exam - Female: deferred General: Yes bladder normal to palpation External Female Exam: No lesion Speculum Exam - Vagina: normal appearance of the vagina, normal palpation, normal vaginal discharge and not erythematous Speculum Exam - Cervix: normal appearance of the cervix and normal palpation Bimanual exam- vagina & uterus: normal bimanual exam, normal palpation, uterine size normal, bladder normal to palpation, consistency normal and normal palpation Bimanual Exam- Adnexa, other: normal adnexae, no masses and no tenderness Assessment & Plan Assessment & Plan (1) Well woman exam: Code(s): Z01.419 - Encounter for gynecological examination (general) (routine) without abnormal findings Category: Medical Plan: Cotesting not indicated this year Mammogram ordered for 10/02 the patient will turned age of 40 then. Counseled the patient about the recommended dietary allowance of 1000 mg of Calcium & 600 IU of vitamin D. The patient was instructed to perform monthly self-breast exams and to schedule an annual exam in a year; All questions answered and the patient verbalized understanding. Instructed the patient to schedule annual exam in a year (2) Pelvic pain: Code(s): R10.2 - Pelvic and perineal pain Category: Medical Plan: Urine dip not done because the patient is on her menstrual cycle and urine test done in the office was negative. Will perform urine dip next visit, GC and chlamydia with BV panel taken and pelvic ultrasound ordered. Discussed with the patient the differential diagnosis of pelvic pain including but not limited to adnexal, uterine masses, pelvic infections (PID), GI the (Irritable bowel syndrome, diverticulitis, others), musculoskeletal, myofascial pain abdominal wall , adhesions, endometriosis, psychological and others causes. Will check results and treat accordingly. All questions answered, the patient verbalized understanding. Instructed the patient to schedule an ultrasound and a follow-up appointment in 2 weeks. All questions answered, the patient verbalized understanding and agreed with the plan. Orders: Orders MM tomosynthesis screening BI 2 Months Z12.31 - Encounter for screening mammogram for malignant neoplasm of breast US pelvic and transvaginal Today R10.2 - Pelvic and perineal pain Coding Level of Care Code Est Pt Level 3 (32720) Est Pt Prev Care 18-39y(83383) Diagnoses Well woman exam Z01.419 Pelvic pain R10.2
[2025-07-10 09:34] VITALS: BP 120/72; BMI 25.5
== END 2025-07-10 10:07 | disposition home or self-care (01) ==
LOC: HO.HWS 09:32
PROVIDERS: PCP Internal Medicine; Visit Provider Obstetrics & Gynecology
DX: Z01.419 Encounter for gynecological examination (general) (routine) without abnormal findings (principal); R10.2 Pelvic and perineal pain; Z32.02 Encounter for pregnancy test, result negative
CPT/HCPCS: 99213; 99395; 99459

== ENCOUNTER 2025-07-10 09:31 | Outpatient (REF) | payer MEDICAID, SELFPAY ==
[2025-07-10 20:35] LABS: Bacterial Vaginosis PCR POSITIVE (Negative); Candida Group PCR NOT DETECTED (Not Detect); Candida glab krusei PCR NOT DETECTED (Not Detect); Trichomonas vaginalis PCR NOT DETECTED (Not Detect)
[2025-07-10 21:21] LABS: CT PCR NOT DETECTED (Not Detect.); NG PCR NOT DETECTED (Not Detect.)
== END 2025-07-10 09:32 | disposition home or self-care (01) ==
LOC: HO.LNP 09:31
PROVIDERS: PCP Internal Medicine; Visit Provider Obstetrics & Gynecology
DX: Z01.419 Encounter for gynecological examination (general) (routine) without abnormal findings (principal); Z12.31 Encounter for screening mammogram for malignant neoplasm of breast; Z11.3 Encounter for screening for infections with a predominantly sexual mode of transmission; Z11.8 Encounter for screening for other infectious and parasitic diseases; Z20.2 Contact with and (suspected) exposure to infections with a predominantly sexual mode of transmission
CPT/HCPCS: 81025; 81515; 87491; 87591; 99212; 99395

== ENCOUNTER 2025-07-10 10:02 | Outpatient (REF) | payer MEDICAID, SELFPAY | END 2025-07-10 10:03 | disposition home or self-care (01) | LOC: HO.LAB 10:02 | PROVIDERS: Visit Provider Obstetrics & Gynecology | DX: Z13.89 Encounter for screening for other disorder (principal) ==

== ENCOUNTER 2025-07-31 15:00 | Outpatient (AMB) | payer MEDICAID, SELFPAY ==
[2025-07-31 15:08] VITALS: BMI 25.5
--- NOTE | 2025-07-31 15:08 | A.OFFVIS_ITS ---
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 Pelvic ultrasound scheduled on 08/30/25 GC/CT with negative PFSH Medical History Trichomonas vaginitis Perirectal abscess COVID-19 Lymphadenopathy Right upper quadrant abdominal pain Physical exam Surgical History Hx of tubal ligation History of drainage of abscess Family History Father Hypertension Stroke Mother No problems noted. Maternal Aunt Breast cancer Social History Household Members: Children Housing: House Do you presently have visiting nurse or other home services: No Unable to assess alcohol history related to: Unknown Alcohol intake: current Alcohol intake frequency: holidays/special occasions only Alcohol type: beer and wine Patient Tobacco Use Status: Never used Tobacco e-Cigarette/Vaping Use: Never Used Second Hand Smoke Exposure: No service: No Current occupational status: unemployed Cognitive needs: No Hearing needs: No Vision needs: No Female Reproductive History Menstrual Date of last menstrual period: 07/04/25 Review of Systems Const All systems reviewed & are unremarkable except as noted in HPI and below Reports as per HPI and Reports no additional complaints GI Reports no additional complaints Reports no additional complaints Physical Exam Vital Signs: BMI result Body Mass Index 25.5 Assessment & Plan Assessment & Plan (1) Pelvic pain: Code(s): R10.2 - Pelvic and perineal pain Category: Medical Plan: Urine dip done in the office was negative. Instructions given the patient is schedule an ultrasound follow-up appointment. All questions answered, the patient verbalized understanding Coding Level of Care Code Est Pt Level 3 (44589) Diagnoses Pelvic pain R10.2
== END 2025-07-31 15:45 | disposition home or self-care (01) ==
LOC: HO.HWS 15:01
PROVIDERS: PCP Internal Medicine; Visit Provider Obstetrics & Gynecology
DX: R10.2 Pelvic and perineal pain (principal)
CPT/HCPCS: 99213

== ENCOUNTER → 2025-07-31 15:00 | Outpatient (BNVA) | payer MEDICAID, SELFPAY | PROVIDERS: PCP Internal Medicine; Visit Provider Obstetrics & Gynecology | DX: R10.2 Pelvic and perineal pain (principal) | CPT/HCPCS: 99212 ==

== ENCOUNTER 2025-08-20 15:03 | Outpatient (REF) | payer MEDICAID, SELFPAY ==
--- NOTE | ~2025-08-20 | US_ITS ---
CLINICAL HISTORY: R10.2 - Pelvic and perineal pain US female pelvis LMP:08/02/25. Technique: Ultrasound examination of the pelvis was performed with transabdominal and transvaginal technique for better visualization of the ovaries. Images include: Color Doppler and spectral Doppler waveforms. Comparison: CT/SR - CT ABDOMEN PELVIS W IV CON - 11/27/24 22:27 EST Findings: Anteverted uterus measuring 9.7 x 5.4 x 6.7cm with a subserosal fibroid at the posterior aspect of the uterine body near the fundus measuring 2.1 x 1.8 x 2.1 cm, also seen on the prior study. There are cystic spaces which may indicate degeneration. On the prior study a fibroid at anterior body was also seen. Normal endometrial thickness of 1.0cm. Trace fluid within the endometrial canal The right ovary is normal in size, measuring 4.9 x 1.9 x 2.2cm, volume of 10.7mL. There is normal echogenicity and vascularity. There is question of a lesion within the right ovary measuring 1.0 x 1.0 x 1.2 cm which is heterogeneous in echogenicity without vascularity. No dermoid cyst seen in the right ovary on the prior study. The left ovary is mildly enlarged, measuring 4.7 x 3.4 x 3.0cm, volume of 25.1mL. There is normal echogenicity and vascularity. There is a hyperechoic lesion with shadowing measuring 2.4 x 3.0 x 2.8 cm corresponding to the dermoid cyst which was also seen on the prior study. On the prior CT of the dermoid cyst measured 2.3 x 2.6 x 2.8 cm. No free fluid. Impression: Fibroid uterus. Questionable 1.2 cm right ovarian lesion. 8 to 12 week follow up pelvic ultrasound is recommended. Mildly enlarged left ovary secondary to a 3.0 cm dermoid cyst. Yearly pelvic ultrasound follow up is recommended. This document has been electronically signed by: Fara Moore MD on 08/20/2025 16:07:58
== END 2025-08-20 15:04 | disposition home or self-care (01) ==
LOC: HO.US 15:03
PROVIDERS: PCP Internal Medicine; Visit Provider Obstetrics & Gynecology
DX: R10.20 Pelvic and perineal pain unspecified side (principal)
CPT/HCPCS: 76830; 76856

== ENCOUNTER → 2025-08-20 15:05 | Outpatient (BNV) | payer MEDICAID, SELFPAY | PROVIDERS: PCP Internal Medicine; Visit Provider Radiology Diagnostic Radiology | DX: D27.1 Benign neoplasm of left ovary (principal) | CPT/HCPCS: 76830; 76856 ==

== ENCOUNTER 2025-08-30 11:14 | Outpatient (AMB) | payer MEDICAID, SELFPAY ==
[2025-08-30 11:19] VITALS: BP 118/76; BMI 25.5
--- NOTE | 2025-08-30 11:19 | MHC.OFFVIS ---
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 The patient is doing well. The following workup was done so far: GC/CT negative. Last visit urine test was negative. Last visit urine dip. Pelvic ultrasound showed the following: Impression: Fibroid uterus. Questionable 1.2 cm right ovarian lesion. 8 to 12 week follow up pelvic ultrasound is recommended. Mildly enlarged left ovary secondary to a 3.0 cm dermoid cyst. Yearly pelvic ultrasound follow up is recommended. [facility] Medical History Trichomonas vaginitis Perirectal abscess COVID-19 Lymphadenopathy Right upper quadrant abdominal pain Physical exam Surgical History Hx of tubal ligation History of drainage of abscess Family History Father Hypertension Stroke Mother No problems noted. Maternal Aunt Breast cancer Social History Household Members: Children Housing: House Do you presently have visiting nurse or other home services: No Alcohol intake: current Alcohol intake frequency: holidays/special occasions only Alcohol type: beer and wine Patient Tobacco Use Status: Never used Tobacco e-Cigarette/Vaping Use: Never Used Second Hand Smoke Exposure: No service: No Current occupational status: unemployed Cognitive needs: No Hearing needs: No Vision needs: No Female Reproductive History Menstrual Date of last menstrual period: 08/28/25 control method: permanent sterilization Review of Systems Const All systems reviewed & are unremarkable except as noted in HPI and below Reports as per HPI and Reports no additional complaints GI Reports no additional complaints Reports no additional complaints Physical Exam Vital Signs: Last Vital Signs BP 118/76 08/30/25 11:19 BMI result Body Mass Index 25.5 Assessment & Plan Assessment & Plan (1) Dermoid cyst: Comment: Left ovary Code(s): D36.9 - Benign neoplasm, unspecified site Category: Medical Plan: Discussed with the patient the finding on ultrasound left-sided teratoma. Explained to the patient that these tumors have a characteristic imaging appearance, which allows reasonably accurate noninvasive diagnosis in many cases with high reported specificity is 98 to 100 percent, but definitive diagnosis is made at the time of surgical excision. Malignant transformation occurs in 0.2 to 2 percent of mature cystic teratomas The treatment is laparoscopic ovarian cystectomy in order to make a definitive diagnosis, preserve ovarian tissue, and avoid potential problems such as torsion, rupture, or development of malignant components. For women who have completed childbearing, salpingo-oophorectomy is also acceptable treatment. Benign cystic teratomas do not recur if surgically resected. The patient is interested in surgical management. 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 (2) Complex ovarian cyst: Comment: Right side Code(s): N83.299 - Other ovarian cyst, unspecified side Category: Medical Plan: Discussed with the patient the finding on ultrasound showing questionable right ovarian lesion, recommended MRI. MRI ordered. Instructions given the patient to schedule an MRI and a follow-up appointment within 2 weeks. All questions answered, the patient verbalized understanding. Orders: Orders MR pelvis wo/w con Today D36.9 - Benign neoplasm, unspecified site, N83.299 - Other ovarian cyst, unspecified side Coding Level of Care Code Est Pt Level 3 (34078) Diagnoses Dermoid cyst D36.9 Complex ovarian cyst N83.299
== END 2025-08-30 11:38 | disposition home or self-care (01) ==
PROVIDERS: PCP Internal Medicine; Visit Provider Obstetrics & Gynecology
DX: D36.9 Benign neoplasm, unspecified site (principal); N83.299 Other ovarian cyst, unspecified side
CPT/HCPCS: 99213

== ENCOUNTER → 2025-08-30 11:14 | Outpatient (BNVA) | payer MEDICAID, SELFPAY | PROVIDERS: PCP Internal Medicine; Visit Provider Obstetrics & Gynecology | DX: Z71.2 Person consulting for explanation of examination or test findings (principal); N83.201 Unspecified ovarian cyst, right side; D36.9 Benign neoplasm, unspecified site | CPT/HCPCS: 99212 ==

== ENCOUNTER → 2025-09-27 12:45 | Outpatient (BNV) | payer MEDICAID, SELFPAY | PROVIDERS: PCP Internal Medicine; Visit Provider Radiology Diagnostic Radiology | DX: N83.291 Other ovarian cyst, right side (principal) | CPT/HCPCS: 72197 ==

== ENCOUNTER 2025-09-27 12:47 | Outpatient (REF) | payer MEDICAID, SELFPAY ==
--- NOTE | ~2025-09-27 | MR_ITS ---
EXAMINATION: MR PELVIS WITHOUT THEN WITH IV CONTRAST HISTORY: N83.299 - Other ovarian cyst, unspecified side. TECHNIQUE: Axial T1, fat-suppressed T1, and fat suppressed T2, and sagittal and coronal T2-weighted MR images of the pelvis were obtained. Subsequently, sagittal and axial fat-suppressed T1-weighted images were obtained after the intravenous administration of 6 mL Gadavist. COMPARISON: Correlation is made with a pelvic ultrasound dated 08/20/[address] of the pelvis dated 11/27/2024. FINDINGS: The uterus measures approximately 11.0 x 6.2 x 6.3 cm. There is an anterior uterine mass measuring 3.1 x 2.3 x 2.6 cm. This is predominantly hypointense with central fluid signal intensity, compatible with a degenerating fibroid. A left posterior fundal fibroid measures 2.4 x 2.1 x 2.6. The junctional zone is not thickened. The endometrium is unremarkable. The cervical stroma is preserved. The right ovary measures approximately 4.1 x 2.4 x 2.8 cm and demonstrates multiple follicles. There is a 10 mm T2 hyperintense focus within the right ovary which does not lose signal intensity on fat-suppressed images, consistent with a hemorrhagic cyst. The left ovary measures approximately 4.5 x 4.3 x 3.0 cm and contains a 3.0 cm focus of fat signal intensity, consistent with a dermoid cyst as seen on CT. There is a small amount of free fluid in the cul-de-sac. The visualized bones demonstrate normal marrow signal intensity. MR/MR pelvis wo/w con IMPRESSION: 1. Fibroid uterus as described. 2. 3.0 cm left ovarian dermoid. 3. 10 mm right ovarian hemorrhagic cyst. Electronically signed by: Faustino Mays MD 09/27/2025 02:04 PM [facility]
== END 2025-09-27 12:48 | disposition home or self-care (01) ==
LOC: HO.MRI 12:47
PROVIDERS: PCP Internal Medicine; Visit Provider Obstetrics & Gynecology
DX: N83.291 Other ovarian cyst, right side (principal); D36.9 Benign neoplasm, unspecified site
CPT/HCPCS: 72197; A9585

== ENCOUNTER 2025-10-02 08:54 | Outpatient (AMB) | payer MEDICAID, SELFPAY ==
--- NOTE | 2025-10-02 08:55 | MHC.OFFVIS ---
Intake Visit Reasons: MRI results Space Scheduler Required: No Information Interpreted: non-clinical & clinical Allergies latex (Latex) Allergy (Mild, Verified 10/02/25 08:55) RASH peanut (Peanut) Allergy (Mild, Verified 10/02/25 08:55) RASH Sulfa (Sulfonamide Antibiotics) Allergy (Verified 10/02/25 08:55) Hives Latex Gloves Allergy (Unknown, Uncoded 10/02/25 08:55) rash HPI Comments Details: Presenting for follow-up regarding pelvic MRI done on 09/27/2025 which showed the following: IMPRESSION: 1. Fibroid uterus as described. 2. 3.0 cm left ovarian dermoid. 3. 10 mm right ovarian hemorrhagic cyst. [facility] Medical History Trichomonas vaginitis Perirectal abscess COVID-19 Lymphadenopathy Right upper quadrant abdominal pain Physical exam Surgical History Hx of tubal ligation History of drainage of abscess Family History Father Hypertension Stroke Mother No problems noted. Maternal Aunt Breast cancer Social History Household Members: Children Housing: House Do you presently have visiting nurse or other home services: No Alcohol intake: current Alcohol intake frequency: holidays/special occasions only Alcohol type: beer and wine Patient Tobacco Use Status: Never used Tobacco e-Cigarette/Vaping Use: Never Used Second Hand Smoke Exposure: No service: No Current occupational status: unemployed Cognitive needs: No Hearing needs: No Vision needs: No Review of Systems Const All systems reviewed & are unremarkable except as noted in HPI and below Reports as per HPI and Reports no additional complaints GI Reports no additional complaints Reports no additional complaints Telehealth Telehealth Telehealth Platform: [facility] Location of provider rendering services: practice address Location of patient: address on file Patient Identification confirmed using: Name, : Yes Telehealth method: video Patient verbally consented to treatment: Yes Patient verbally consented to billing insurance company: Yes Patient informed of any privacy concerns related to visit: Yes Minutes spent on Phone/Video with Pt.: 5 Assessment & Plan Assessment & Plan (1) Cyst, ovary, dermoid: Code(s): D27.9 - Benign neoplasm of unspecified ovary Category: Medical Plan: Discussed with the patient the finding on ultrasound and pelvic MRI showing ovarian 3 cm teratoma. Explained to the patient that these tumors have a characteristic imaging appearance, which allows reasonably accurate noninvasive diagnosis in many cases with high reported specificity is 98 to 100 percent, but definitive diagnosis is made at the time of surgical excision. Malignant transformation occurs in 0.2 to 2 percent of mature cystic teratomas The treatment is laparoscopic ovarian cystectomy in order to make a definitive diagnosis, preserve ovarian tissue, and avoid potential problems such as torsion, rupture, or development of malignant components. For women who have completed childbearing, salpingo-oophorectomy is also acceptable treatment. Benign cystic teratomas do not recur if surgically resected. The patient decided to proceed with surgical management, the patient was referred to [facility] O[facility]YN an appointment scheduled within few weeks and the patient is aware. (2) Hemorrhagic cyst of ovary: Code(s): N83.209 - Unspecified ovarian cyst, unspecified side Category: Medical Plan: Also discussed with the patient the finding of ovarian hemorrhagic cyst by MRI, recommended intraoperative evaluation and treat accordingly. Since the patient is scheduled at [facility] for surgical management, the patient has stated that she will pass by the office to have a copy of the pelvic MRI to her appointment at [facility]. All questions answered, the patient verbalized understanding. I spent a total of 20 minutes reviewing the chart, talking to the patient via video and documenting in the medical record. Coding Level of Care Code Tele Est Pt Level 3 (57394) Diagnoses Cyst, ovary, dermoid D27.9 Hemorrhagic cyst of ovary N83.209
== END 2025-10-02 09:25 | disposition home or self-care (01) ==
LOC: HO.HWS 08:54
PROVIDERS: PCP Internal Medicine; Visit Provider Obstetrics & Gynecology
DX: D27.9 Benign neoplasm of unspecified ovary (principal); N83.209 Unspecified ovarian cyst, unspecified side
CPT/HCPCS: 99213